=== PATIENT | male | born 1940 | race Caucasian/White ===

== ENCOUNTER 2022-03-02 08:00 | Day surgery (SDC) | payer MEDICARE ==
[~2022-03-02] VITALS: Ht 172.7 cm; Wt 58.0 kg
[2022-03-02] MEDS ORDERED: METO10SY (08:37)
[2022-03-02] MEDS ORDERED: OXYC5 PO (08:38)
[2022-03-02] MEDS ORDERED: METO10 (08:39)
--- NOTE | 2022-03-02 09:17 | NUR ---
03/02/22 0917 Lea Toledo PT. DENIES HAVING A SORE THROAT, DENIES SOB, DENIES A COUGH. PT. JUST VERBALIZES FEELING TIRED.
--- NOTE | 2022-03-02 09:40 | NUR ---
03/02/22 0940 Monika Garrett SCOPE ONLY PASSED UP TILL MD ORTIZ REACHED PROXIMAL TRANSVERSE COLON MASS, BIOPSIES TAKEN AND MASS TATTOOED. THEN SCOPE SLOWLY REMOVED.
== END 2022-03-02 10:14 | disposition home or self-care (01) ==
LOC: ORSCSDS 08:00
PROVIDERS: Surgery
PROC: 0DBL8ZX Excision of Transverse Colon, Via Natural or Artificial Opening Endoscopic, Diagnostic (ICD-10-PCS; principal; 2022-03-02 09:00)
PROC: 3E0H8KZ Introduction of Other Diagnostic Substance into Lower GI, Via Natural or Artificial Opening Endoscopic (ICD-10-PCS; principal; 2022-03-02 09:00)
DX: R93.3 Abnormal findings on diagnostic imaging of other parts of digestive tract (principal); D12.3 Benign neoplasm of transverse colon; K56.699 Other intestinal obstruction unspecified as to partial versus complete obstruction; R63.4 Abnormal weight loss; U07.1 COVID-19; Z87.891 Personal history of nicotine dependence; Z79.899 Other long term (current) drug therapy
CPT/HCPCS: 88305; J2704; J7120

== ENCOUNTER 2022-03-08 11:45 | Emergency (ER) | payer MEDICARE ==
[~2022-03-08] VITALS: Ht 172.7 cm; Wt 72.6 kg
[~2022-03-08 11:45] MED LIST: METO10; METO10SY; OXYC5 PO
[2022-03-08 12:34] LABS: BASOPHILS ABSOLUTE AUTO 0.03 K/mm3 (0.00-0.23); BASOPHILS PERCENT AUTO 1 % (0-2); EOSINOPHILS ABSOLUTE AUTO 0.07 K/mm3 (0.00-0.68); EOSINOPHILS PERCENT AUTO 1 % (0-6); Hematocrit 31.6 % (37.0-53.0); Hemoglobin 10.4 g/dL (13.5-17.5); IMMATURE GRAN ABSOLUTE AUTO 0.01 K/mm3 (0.00-0.10); IMMATURE GRAN PERCENT AUTO 0 % (0-1); LYMPHOCYTES ABSOLUTE AUTO 2.02 K/mm3 (0.84-5.20); LYMPHOCYTES PERCENT AUTO 30 % (21-46); MONOCYTES ABSOLUTE AUTO 0.58 K/mm3 (0.16-1.47); MONOCYTES PERCENT AUTO 9 % (4-13); Mean Corpuscular HGB 28.6 pg (26.0-34.0); Mean Corpuscular HGB Conc 32.9 g/dL (31.5-36.5); Mean Corpuscular Volume 87 fL (80-100); Mean Platelet Volume 9.4 fL (9.1-12.4); NEUTROPHILS ABSOLUTE AUTO 3.93 K/mm3 (1.96-9.15); NEUTROPHILS PERCENT AUTO 59 % (41-73); Platelet Count 252 K/mm3 (150-400); RDW Coefficient Variation 15.3 % (11.7-14.2); RDW Standard Deviation 48.1 fL (35.1-46.3); Red Blood Cell Count 3.64 M/mm3 (4.30-5.90); White Blood Cell Count 6.64 K/mm3 (4.00-11.30)
[2022-03-08 13:10] LABS: Albumin, Blood 2.6 g/dL (3.4-5.0); Albumin/Globulin Ratio 0.6 (0.8-1.8); Bilirubin, Total 0.6 mg/dL (0.1-1.0); Bun/Creatinine Ratio 37.3 (12.0-20.0); Calcium, Blood 8.9 mg/dL (8.5-10.1); Creatinine, Blood 0.72 mg/dL (0.60-1.20); Globulin, Blood 4.5 g/dL (2.2-4.0); Potassium, Blood 3.9 mmol/L (3.5-5.5); Total Protein, Blood 7.1 g/dL (6.4-8.2)
== END 2022-03-08 14:36 | disposition left against medical advice (07) ==
LOC: ER 11:45
PROVIDERS: Physician Assistant
DX: R53.1 Weakness (principal); Z85.038 Personal history of other malignant neoplasm of large intestine; Z79.899 Other long term (current) drug therapy; Z53.21 Procedure and treatment not carried out due to patient leaving prior to being seen by health care provider
CPT/HCPCS: 36415; 80053; 85025; 93005; 93010

== ENCOUNTER 2022-04-11 09:02 | Inpatient (IN) | payer MEDICARE ==
[~2022-04-11] VITALS: Ht 170.2 cm; Wt 64.5 kg
[~2022-04-11 09:02] MED LIST changes: -METO10; +METO10 PO
--- NOTE | 2022-04-11 09:46 | NUR ---
History, Chart, Medications and Allergies reviewed before start of procedure. Patient confirms NPO status and agrees with scheduled surgery. Lungs clear T/O to Auscultation.
[2022-04-12 05:27] LABS: BASOPHILS ABSOLUTE AUTO 0.03 K/mm3 (0.00-0.23); BASOPHILS PERCENT AUTO 0 % (0-2); EOSINOPHILS ABSOLUTE AUTO 0.02 K/mm3 (0.00-0.68); EOSINOPHILS PERCENT AUTO 0 % (0-6); Hematocrit 31.4 % (37.0-53.0); Hemoglobin 10.3 g/dL (13.5-17.5); IMMATURE GRAN ABSOLUTE AUTO 0.05 K/mm3 (0.00-0.10); IMMATURE GRAN PERCENT AUTO 0 % (0-1); LYMPHOCYTES ABSOLUTE AUTO 2.03 K/mm3 (0.84-5.20); LYMPHOCYTES PERCENT AUTO 18 % (21-46); MONOCYTES ABSOLUTE AUTO 0.76 K/mm3 (0.16-1.47); MONOCYTES PERCENT AUTO 7 % (4-13); Mean Corpuscular HGB 29.4 pg (26.0-34.0); Mean Corpuscular HGB Conc 32.8 g/dL (31.5-36.5); Mean Corpuscular Volume 90 fL (80-100); Mean Platelet Volume 9.1 fL (9.1-12.4); NEUTROPHILS PERCENT AUTO 74 % (41-73); Platelet Count 335 K/mm3 (150-400); RDW Coefficient Variation 16.1 % (11.7-14.2); RDW Standard Deviation 53.1 fL (35.1-46.3); White Blood Cell Count 11.19 K/mm3 (4.00-11.30)
--- NOTE | 2022-04-12 05:59 | NUR ---
SHIFT SUMMARY PT POD 0 RIGHT HEMICOLECTOMY. PT HAS HAD PAIN INTERMITTENTLY T/O THE SHIFT. PT MEDICATED FOR PAIN PER EMAR WITH EFFECT. PT HAS HAD SOME CONFUSION OVERNIGHT. TALKING TO HIMSELF, GRABBING AT THE AIR WITH HIS HANDS, AND AT TIMES NONSENSICAL SPEECH. IV DILAUDID MAY HAVE CONTRIBUTED TO PT CONFUSION, IT WAS NOTICABLE AFTER RECEIVING. PT PULLED HIS IV AND ATTEMPTED TO PULL YEUNG. PT SEEMS TO TOLERATE OXYCODONE BETTER THAN DILAUDID, WILL NOTIFY DAYSHIFT RN FOR FOLLOW UP WITH DAYSHIFT ATTENDING REGARDING PAIN MEDICATIONS. PT MORE A/O I WRITE THIS NOTE AND HAS NOT ATTEMPTED TO GET OOB OR PULL CATHETHER OR IV ANYMORE. KNOWS PLACE, EVENT/SITUATION, AND IS MUCH MORE RELAXED. PT LAP SITES CDI, INCISION DRY AND INTACT. PT HAS DENIED N/V. NO BM THIS SHIFT AND HE REPORTS HE IS NOT PASSING GAS YET. VITALS ARE STABLE. YEUNG PATENT AND DRAINING. BED IN LOWEST POSITION, CALL LIGHT WITHIN REACH.
[2022-04-12 06:09] LABS: Bun/Creatinine Ratio 27.6 (12.0-20.0); Calcium, Blood 8.6 mg/dL (8.5-10.1); Creatinine, Blood 0.83 mg/dL (0.60-1.20); Potassium, Blood 4.3 mmol/L (3.5-5.5)
--- NOTE | 2022-04-12 19:34 | NUR ---
SUMMARY: PT IS POD1 EMERSON COLECTOMY. A/O VSS. SURGICAL SITES WNL. PT ABLE TO WORK WITH THERAPY AND REPORTS WEAKNESS, SAT UP IN CHAIR FOR LUNCH. DIET ADVANCED TO REG TODAY, BUT PT REPORTS NO APPETITE. PT HAS DENIED N/V, PASSING GAS. PAIN APPEARS TO BE WELL MANAGED WITH 5 MG OXYCODONE. PT IS VOIDING. NO ACUTE SAFETY CONCERNS, REPORT PASSED TO NOC ALVIN GUARDADO.
--- NOTE | 2022-04-13 07:31 | NUR ---
SUMMARY PT DENIES PASSING FLATUS OR BM. REPORTS VOIDING WITHOUT DIFF THIS AM. PT VERB PO PAIN MEDS INEFFECTIVE-GAVE FENTANYL 50 MCG AM IV WHICH CONT WITH REPORT OF BEING INEFFECTIVE.DAY RN AWARE AND AGREES TO FOLLOW UP REGARDING PAIN.
--- NOTE | 2022-04-13 12:14 | NUR ---
PT DECLINES TO GET OOB, STATES HE IS "BEING PICKED ON AND TOO TIRED" PT EDUCATION DONE AND NEED TO INCREASE ACTIVITY TO INCREASE HIS STRENGTH AND PREVENT POST OP COMPLICATIONS. PT DECLINES OOB AFTER EDUCATION
--- NOTE | 2022-04-13 15:29 | NUR ---
PT REPORTS SLIGHTLY DIZZY WHILE SITTING IN CHAIR, SLIGHTLY DIAPHORETIC, VS CHECKED AND PATIENT ASSISTED BACK TO BED. PT STATES HE IS TIRED AND NEEDS LEFT ALONE TO SLEEP
--- NOTE | 2022-04-13 17:47 | NUR ---
PT REPORTS SLEPT FOR A BIT AND FEELING MUCH BETTER THAN HE DID THIS MORNING. DENIES NAUSEA , TAKING SMALL AMOUNTS OF MECH SOFT DIET. ABD INCISIONS CLEAN, DRY AND INTACT. PT REPORTS PAIN IS CURRENTLY 6 AND THAT IS ACCEPTABLE LEVEL FOR HIM AT THIS TIME. PT DECLINES TO GET OOB FOR DINNER. PT EDUCATED ON NEED TO INCREASE ACTIVITY AND OOB TO IMPROVE STRENGTH
[2022-04-14 04:58] LABS: Hematocrit 34.1 % (37.0-53.0); Hemoglobin 11.3 g/dL (13.5-17.5); Mean Corpuscular HGB 29.3 pg (26.0-34.0); Mean Corpuscular HGB Conc 33.1 g/dL (31.5-36.5); Mean Corpuscular Volume 88 fL (80-100); Mean Platelet Volume 9.1 fL (9.1-12.4); Platelet Count 401 K/mm3 (150-400); RDW Coefficient Variation 15.3 % (11.7-14.2); RDW Standard Deviation 49.8 fL (35.1-46.3); Red Blood Cell Count 3.86 M/mm3 (4.30-5.90); White Blood Cell Count 3.37 K/mm3 (4.00-11.30)
--- NOTE | 2022-04-14 05:12 | NUR ---
PT MINIMALLY RESPONSIVE WITH MORNING VITALS. PT OPENS EYES BUT DID NOT RESPOND VERBALLY. VITALS SHOWED SBP 80'S AND O2 SATS 79%, HR 130'S. PLACED PT ON NON REBREATHER AT 15L, O2 SATS UP TO 94-98%. CBG 213. PT A BIT MORE RESPONSIVE AFTER O2 SATS IMPROVED, NODDING YES/NO AND SAYING [address]SW[address]. NOTIF[address] ORTIZ WHO GAVE ORDER FOR LABS ALONG WITH LR BOLUS AND A D5 DRIP AT 50 ML/HR AFTER BOLUS. EKG SHOWED ST 120'S. AT THIS TIME SBP 120'S AND O2 SATS 99 ON 15L NRB, TITRATED DOWN TO 12L. HR STILL 120'S. HGB 11, STILL WAITING ON CMP. PT RESTING IN BED AND IS MORE RESPONSIVE. WCTM.
[2022-04-14 05:40] LABS: BAND PERCENT MAN 29 % (0-8); BASOPHILS ABSOLUTE MAN 0.03 K/mm3 (0.00-0.23); BASOPHILS PERCENT MAN 1 % (0-2); EOSINOPHILS ABSOLUTE MAN 0.03 K/mm3 (0.00-0.68); EOSINOPHILS PERCENT MAN 1 % (0-6); LYMPHOCYTES PERCENT MAN 15 % (21-46); METAMYELOCYTE ABSOLUTE MAN 0.03 K/mm3 (0.00-0.00); METAMYELOCYTE PERCENT MAN 1 % (0-0); MONOCYTES ABSOLUTE MAN 0.13 K/mm3 (0.16-1.47); MONOCYTES PERCENT MAN 4 % (4-13); NEUTROPHILS ABSOLUTE MAN 2.62 K/mm3 (1.96-9.15); SEG NEUTROPHILS PERCENT MAN 49 % (41-73); TOTAL CELLS COUNTED 100
[2022-04-14 05:48] LABS: Albumin, Blood 2.4 g/dL (3.4-5.0); Albumin/Globulin Ratio 0.5 (0.8-1.8); Bilirubin, Total 0.8 mg/dL (0.1-1.0); Bun/Creatinine Ratio 28.3 (12.0-20.0); Calcium, Blood 9.1 mg/dL (8.5-10.1); Creatinine, Blood 1.73 mg/dL (0.60-1.20); Potassium, Blood 4.6 mmol/L (3.5-5.5); Total Protein, Blood 7.4 g/dL (6.4-8.2)
--- NOTE | 2022-04-14 08:06 | NUR ---
TO RADIOLOGY PER CART
--- NOTE | 2022-04-14 08:36 | NUR ---
returned to room from radiology. pt denies any increase in pain, denies sob
--- NOTE | 2022-04-14 10:12 | NUR ---
Pt is an 81 y.o. man who lives alone with a diagnosis of colon cancer. He underwent hemicolectomy by Dr. Hastings to remove the cancer. He is alert, oriented with moments of confusion. He is non-compliant with therapy, declines to work with PT. Spoke to his nephew Александр yesterday by phone, he reports he lives near pt and checks in on him often. He is planning to come visit today, to see him as well as speak to care mgr about follow up planning, as it remains unclear if pt is able to fully care for himself at this time.
--- NOTE | 2022-04-14 11:09 | NUR ---
TRANSFER NOTE PATIENT TRANSFERRED TO PCU RM 17 FROM SURG 211. PATIENT TO UNIT WITH SBP IN THE 70S. MOST RECENT BLOOD PRESSURE OF 69/53 WITH MAP OF 60. PATIENT RECEIVED BOLUSES IN SURGICAL UNIT. INITIALLY RESPONDED DURING THE HEAT AND FROST INSULATOR WITH SBP INCREASING TO 110S. PATIENT NOW HAS AUDIBLE CRACKLES HEARD THROUGHOUT. NG TUBE PLACED IN SURGICAL UNIT WITH NO CONFIRMATION XRAY DONE AT THIS TIME. CXR TAKEN IN PCU 17 TO VERIFY PLACEMENT. GURLGES HEARD IN THE ABDOMEN UPON AUSCULATATION. MD GONZALEZ WAS CALLED REGARDING PATIENTS UNSTABLE CONDITION WITH ORDERS TO TRANSFER TO ICU WITH MD GOLDSTEIN AND YEUNG CATHETER PLACEMENT. PATIENT TRANSFERRED TO ICU WITH RT, MATTHEW RN, AND AZAM RN. BEDSIDE REPORT GIVEN TO SOULEYMANE ESQUIVEL WITH ALL INFORMATION THIS RN RECEIVED FROM JANINE ESQUIVEL ON THE SURGICAL UNIT. JANINE'S NAME WAS GIVEN TO SOULEYMANE ESQUIVEL INCASE OF ANY QUESTIONS DUE TO HER CARE FOR THE PATIENT FOR MULTIPLE DAYS. PATIENT WAS TRANSFERRED TO ICU BED VIA SLIDE. NO FURTHER QUESTIONS FROM CRISTIANO ESQUIVEL OR SOULEYMANE ESQUIVEL ABOUT PATIENT. CARE OF PATIENT TRANSFERRED TO CRISTIANO/SOULEYMANE ESQUIVEL.
--- NOTE | 2022-04-14 11:22 | NUR ---
1030 pt placed on 14 liter oxygen after ng placement as unable to tolerate nrb mask with ng in place. biox 84-88%. resp therapy notified and placed patient on high flow oxygen at 14 liters. pt denies sob. lung with fine crackles 3/4 of left lung field and 1/2 of right lung field. spoke with dr jennings and orders received. pt transferred via bed to pcu 17. pts nephew notified of pt status and transfer by Mariah Nielson manager export.
[2022-04-14 12:23] LABS: Source, Urine Foley catheter
[2022-04-14 12:28] LABS: Appearance, Urine Hazy (Clear); Bilirubin, Urine Neg (Neg); Blood, Urine 5+ (Neg); Color, Urine Yellow (P-Yellow); Glucose Qualitative, Urine Neg (Neg); Ketones, Urine Neg (Neg); Leukocyte Esterase, Urine 3+ (Neg); Nitrite, Urine Neg (Neg); Protein, Urine 1+ (Neg); Urobilinogen, Urine 1+ (Normal)
--- NOTE | 2022-04-14 12:30 | NUR ---
NEW PT TRANSFER: PT ARRIVED TO THE UNIT AT 1120; PT ARRIVES TO THE UNIT HYPOTENSIVE WITH SBP IN THE 70'S, HR IN THE 100'S, AND MAP 60-63. PT IS ON A BIPAP WITH SETTINGS 14/8 AND FIO2 AT 70%, O2 LEVELS MAINTAINING 96<, AND RR 16-18. DR GONZALEZ CONSULTED DR GOLDSTEIN, AND SHE AT BEDSIDE WHEN PT ARRIVED TO ASSESS HIS CURRENT STATUS. AT THIS TIME, 1 L NS BOLUS INITIATED. THE PT'S NEUROLOGIC FUNCTIONING PRESERVED UPON MY ASSESSMENT. THE PT IS ABLE TO FOLLOW COMMANDS BY SQEEZING MY HANDS AND MOVING HIS TOES, TRACKING WITH HIS EYES APPROPRIATELY, AND ABLE TO NOD YES/NO TO SIMPLE QUESTIONS. PT HAS NO COMPLAINTS OF PAIN AT THIS TIME. THE PT HAS A MIDLINE ABD INCISION THAT IS CLEAN AND HAS NO DRAINAGE PRESENT. THE ABD LOOKS MILDLY DISTENDED, BUT THE PT HAS NO C/O OF PAIN WHEN PALPATED. THE PT HAS HYPOACTIVE BS IN ALL FOUR QUADRANTS. THE PT HAS A NGT PRESENT AND HOOKED UP TO LOW-INTERMEDIATE SUCTIONING. THE NGT ADVANCED BY 5 CM BY THIS RN PER DR GOLDSTEIN; PLACEMENT RECONFIRMED WITH ANOTHER CXR. PT HAD AN INDWELLING CATHETER INSERTED TODAY IN PCU RIGHT BEFORE TRANSFER TO THIS UNIT. URINE SPECIEN COLLECTED IN THE ICU AND SENT TO THE LAB. THE CATHETER IS PATENT AND DRAINING TO GRAVITY. THE PT HAD A SMALL BM WHEN HE ARRIVED TO THE UNIT. DR GOLDSTEIN PUT ORDERS IN FOR LEVOPHED AND IT WAS STARTED AT 1314 WITH A RATE OF 2 MCG/MIN. THE PT IS CURRENTLY RESTING IN BED. DR. ORTIZ AT BEDSIDE AT 1400 TO ASSESS PT AND OBTAIN UPDATE ON STATUS. WILL CONTINUE TO MONITOR THROUGHOUT THE SHIFT.
[2022-04-14 12:35] LABS: Hematocrit 26.9 % (37.0-53.0)
[2022-04-14 14:25] LABS: Red Blood Cells, Urine 25-50 /hpf (0-2)
[2022-04-14 14:26] LABS: Amorphous Mod (0-Heavy); Bacteria Many /hpf; Renal Epithelial Rare /hpf (0-Rare); Squamous Epithelial Cells Rare /hpf (Few)
--- NOTE | 2022-04-14 18:53 | NUR ---
SHIFT SUMMARY: PT ALERT AND ORIENTED X 2 AND REMAINS ABLE TO FOLLOW COMMANDS AND ANSWER SIMPLE QUESTIONS VERBALLY. THE PT CURRENTLY HAS LEVOPHED RUNNING AT 5 MCG/MIN WITH HR IN THE 100'S, SBP 110'S, AND MAP 65<. THE PT IS CURRENTLY ON 1 L O2 AND O2 LEVELS HAVE BEEN MAINTAINING 96< AND RR 14-16. THE PT HAS CLEAR LUNG SOUNDS IN UPPER LOBES BILATERALLY WITH COARSE SOUNDS LOWER LOBES BILATERALLY. THE PT HAS AN NGT IN PLACE THAT IS HOOKED UP TO LOW-INTERMEDIATE SUCTIONING. THE PT HAS AN INDWELLING CATHETER TAHT IS PATENT AND DRAINING TO GRAVITY; ANNELISE, DARK URINE. THE PT HAD FAMILY MEMBERS VISITING THIS AFTERNOON AND THEY WERE UPDATED ON THE PT'S STATUS AND ALL QUESTIONS WERE ANSWERED AT THIS TIME. REPORT GIVEN TO FIDEL ESQUIVEL AND ZOHAIB ESQUIVEL.
--- NOTE | 2022-04-14 19:00 | NUR ---
ASSUMED CARE PT SITTING IN BED. A/O TO SELF ONLY. LEVOPHED GTT 5MCG/MIN. LR INFUSING 100ML/HR. DENIES PAIN IN ABD. MIDLINE INCISION C/D/I. NGT TO LOW INT SUCTION. CALL LIGHT IN REACH, BED ALARM ON.
--- NOTE | 2022-04-14 20:30 | NUR ---
PULLING ON TUBES AND LINES PT ATTEMPTED TO CLIMB OOB. PULLED OUT L FORARM PIV AND NGT. REDIRECTED PT TO LAY DOWN. SWB RESTRAINTS APPLIED TO PROTECT LINE AND TUBES. NEW NGT PLACED TO LEFT NARE. PT TOLERATED WELL. PLACEMENT VERIFIED BY ASPIRATION OF GASTRIC CONTENTS. BED ALARM ON, CALL LIGHT IN REACH.
[2022-04-15 04:18] LABS: Hematocrit 26.6 % (37.0-53.0); Hemoglobin 8.8 g/dL (13.5-17.5); Mean Corpuscular HGB 28.9 pg (26.0-34.0); Mean Corpuscular HGB Conc 33.1 g/dL (31.5-36.5); Mean Corpuscular Volume 88 fL (80-100); Mean Platelet Volume 9.1 fL (9.1-12.4); Platelet Count 327 K/mm3 (150-400); RDW Coefficient Variation 15.5 % (11.7-14.2); RDW Standard Deviation 50.3 fL (35.1-46.3); Red Blood Cell Count 3.04 M/mm3 (4.30-5.90); White Blood Cell Count 8.93 K/mm3 (4.00-11.30)
[2022-04-15 04:36] LABS: Albumin/Globulin Ratio 0.4 (0.8-1.8); Bilirubin, Total 0.6 mg/dL (0.1-1.0); Bun/Creatinine Ratio 46.8 (12.0-20.0); Calcium, Blood 8.2 mg/dL (8.5-10.1); Creatinine, Blood 1.11 mg/dL (0.60-1.20); Globulin, Blood 4.5 g/dL (2.2-4.0); Potassium, Blood 4.1 mmol/L (3.5-5.5); Total Protein, Blood 6.5 g/dL (6.4-8.2)
[2022-04-15 05:05] LABS: BAND PERCENT MAN 49 % (0-8); BASOPHILS PERCENT MAN 0 % (0-2); EOSINOPHILS ABSOLUTE MAN 0.08 K/mm3 (0.00-0.68); EOSINOPHILS PERCENT MAN 1 % (0-6); LYMPHOCYTES ABSOLUTE MAN 1.33 K/mm3 (0.84-5.20); LYMPHOCYTES PERCENT MAN 15 % (21-46); METAMYELOCYTE ABSOLUTE MAN 0.08 K/mm3 (0.00-0.00); METAMYELOCYTE PERCENT MAN 1 % (0-0); MONOCYTES ABSOLUTE MAN 0.17 K/mm3 (0.16-1.47); MONOCYTES PERCENT MAN 2 % (4-13); NEUTROPHILS ABSOLUTE MAN 7.23 K/mm3 (1.96-9.15); SEG NEUTROPHILS PERCENT MAN 32 % (41-73); TOTAL CELLS COUNTED 100
--- NOTE | 2022-04-15 05:53 | NUR ---
SHIFT SUMMARY PT IS A/O TO SELF ONLY. CALM AND COOPERATIVE AT TIMES. AGITATED AND IRRITABLE AT OTHERS. SWB RESTRAINTS IN PLACE D/T LINE/NGT PROTECTION. LEVOPHED TITRATED OFF AT 0216. VSS W/ MAP GREATER THAN 65. NS INFUSING AT 100ML/HR. MEDICATED X1 FOR PAIN. MIDLINE INCISION C/D/I. ON RA W/ SATS GREATER THEN 90%. LUNG SOUNDS CLEAR W/ CRACKLES IN BASES. YEUNG PATENT AND DRAINING TO GRAVITY. SCDs TO BLE.
--- NOTE | 2022-04-15 12:34 | NUR ---
REASSESSMENT PT'S MENTATION HAS IMPROVED THROUGHOUT THE MORNING, BUT HE IS STILL CONFUSED. WHEN REORIENTED HE REMEMBERS FOR THE TIME THAT THIS NURSE IS IN THE ROOM, BUT FORGETS LATER WHEN THIS NURSE RETURNS AND NEEDS REORIENTATION AGAIN. HE HAS STILL BEEN REACHING FOR THE NG TUBE WHEN RESTRAINTS ARE OFF. DR. ORTIZ CAME BY AND GAVE ORDERS TO CONTINUE THE NG IT HAS HAD ABOUT 500ML OF [place] BROWN OUTPUT. WHEN MOVING HE WINCES AND SAYS HE HAS PAIN, BUT REFUSES PAIN MEDICATION. HIS LUNGS ARE CLEAR, RA WITH SPO2 96%. ST IN THE LOW 100S SINCE HE GOT UP TO THE CHAIR, BP STABLE. BOWEL TONES ACTIVE. MIDLINE INCISION C/D/I. YEUNG WITH DARK YELLOW URINE. PT WORKED WITH PHYSICAL THERAPY THIS MORNING AND NOW IS SITTING UP IN THE CHAIR. CONTINUING TO MONITOR.
--- NOTE | 2022-04-15 14:54 | NUR ---
TRANSFER PT TRANSFERRED TO RM 226 VIA WC WITH AIDE. REPORT GIVEN TO ALVIN DICKSON. ALL BELONGINGS MOVED WITH PT.
--- NOTE | 2022-04-15 15:11 | NUR ---
TRANSFER PT ARRIVED FROM ICU AT 1500. PT ALERT AND ORIENTED CAN TELL WHERE HE IS AND WHY. DENIES PAIN REPORTS SOME DISCOMFORT MIDLINE. INCISIONS CDI WITH WOUND GLUE. NGT CONNECTED TO LOW INTERMITTENT SUCTION BROWN DRAINAGE IN TUBE UPON CONNECTING. YEUNG PATENT AND DRAINING. PT ABLE TO TRANSFER SELF WITH 1 ASSIST TO BED FROM WHEELCHAIR. IV FLUIDS INFUSING PER ORDERS. CALL SANAT PROVIDED AND PT EDUCATED ON USE.
--- NOTE | 2022-04-16 01:30 | NUR ---
ASSUMING CARE OF PT.NOTIFIED TELE OFF. ENTERED RM TO FIND PT IN BED NUDE WITH GOWN OFF,BLANKETS ATTENDS,MEPILEX ALL ON FLOOR COVERED IN STOOL-IN ADDITION TO NOTING PT PULLED NG OUT AND POWER GLIDE OUT AND THEY ARE ALSO RESTING ON FLOOR.POWER GLIDE SITE WITHOUT BLEED.CATH APPEARS INTACT.REPORTED THAT PT HAS BEEN INTERMITTENTLY DISORIENTED. AT THIS TIME PT IS ORIENTED TO SURROUNDINGS AND SELF.BED BATH GIVEN,COMPLETE LINEN CHANGE,ROOM CLEANED,BED ALARM ON.
[2022-04-16 04:21] LABS: Hematocrit 25.7 % (37.0-53.0); Hemoglobin 8.5 g/dL (13.5-17.5); Mean Corpuscular HGB 28.7 pg (26.0-34.0); Mean Corpuscular HGB Conc 33.1 g/dL (31.5-36.5); Mean Corpuscular Volume 87 fL (80-100); Mean Platelet Volume 8.8 fL (9.1-12.4); Platelet Count 307 K/mm3 (150-400); RDW Coefficient Variation 15.4 % (11.7-14.2); RDW Standard Deviation 49.3 fL (35.1-46.3); Red Blood Cell Count 2.96 M/mm3 (4.30-5.90); White Blood Cell Count 5.18 K/mm3 (4.00-11.30)
[2022-04-16 04:41] LABS: Bun/Creatinine Ratio 57.4 (12.0-20.0); Calcium, Blood 8.2 mg/dL (8.5-10.1); Creatinine, Blood 0.77 mg/dL (0.60-1.20); Potassium, Blood 3.9 mmol/L (3.5-5.5)
[2022-04-16 05:41] LABS: BAND PERCENT MAN 20 % (0-8); BASOPHILS ABSOLUTE MAN 0.05 K/mm3 (0.00-0.23); BASOPHILS PERCENT MAN 1 % (0-2); EOSINOPHILS PERCENT MAN 2 % (0-6); LYMPHOCYTES ABSOLUTE MAN 0.98 K/mm3 (0.84-5.20); LYMPHOCYTES PERCENT MAN 19 % (21-46); MONOCYTES PERCENT MAN 0 % (4-13); NEUTROPHILS ABSOLUTE MAN 4.04 K/mm3 (1.96-9.15); SEG NEUTROPHILS PERCENT MAN 58 % (41-73); TOTAL CELLS COUNTED 100
--- NOTE | 2022-04-16 07:45 | NUR ---
SUMMARY PT RESTING IN BED. PERIPHERAL IV OBTAINED.LEFT NG OUT. DR ORDERED TO D/Misael YEUNG AND START CLEAR LIQ.
--- NOTE | 2022-04-16 19:24 | NUR ---
shift summary PT HAS BEEN ORIENTED AND COOPERATIVE T/O SHIFT. MIDLINE INCISIONS WITH WOUND GLUE CDI. BOWEL MOVEMENT TODAY. PT HAS BEEN USING CALL LIGHT APPROPRIATLY. DENIES PAIN DURING SHIFT. 1 ASSIST WITH AMBULATION TO RESTROOM, MINIMAL WEAKNESS WITH AMBULATION. TOLERATING CLEAR LIQUIDS TODAY. NO NAUSEA. VERY HAPPY TO HAVE NG TUBE OUT.
--- NOTE | 2022-04-17 05:57 | NUR ---
POD 6 S/P HEMICOLECTOMY. PT VSS T/O NIGHT. INCISION CDI. PAIN MGD W/TYLENOL. PT MONAE CL PO, NO N/V, HAVING LIQ BROWN BM. PT INCONTINENT OF URINE; ATTENDS CHANGED PRN. PT A/O AT BEGINNING OF SHIFT, BECAME INCREASINGLY CONFUSED T/O NIGHT; PT EASILY REORIENTED. BED ALARM ON FOR SAFETY.
--- NOTE | 2022-04-17 10:21 | NUR ---
TRANSFER SUMMARY PT NOT FOLLOWING DIRECTIONS, TRIES TO GET UP ON HIS OWN/IMPULSIVE, BEING TRANSFERRED TO SCU FOR SAFETY AND CLOSER MONITORING. REPORT PROVIDED TO 345.
--- NOTE | 2022-04-17 10:29 | NUR ---
PT WAS TRANSFERRED TO THE FLOOR AT 1000. HE IS CALM AND COOPERATIVE SITTING IN BED AND WATCHING TV. HE IS ON ROOM AIR. HE STATES SOME LIGHT PAIN IN THE MIDDLE OF HIS STOMACH WHERE HIS INCSION IS, BUT DOES NOT NEED PAIN MEDICATION RN.
--- NOTE | 2022-04-17 18:23 | NUR ---
SHIFT SUMMARY PT IS SITTING IN BED, BUT HAS BEGUN . DURING DDAY SHIFT HE IS CALM, COOPERATIVE, AND STAY IN BED OR THE CHAIR. HE IS IN SOME PAIN WITH HIS INCISION, BUT WANTS TO REFUSE PAIN MEDICATION HOWEVER THIS RN HAS ENCOURAGED PAIN MANAGEMENT AND EDUCATED ON WHY IT IS IMPORTANT TO THE PT. HE WAS MEDICATED WITH A PRN TO PREVENT HIM FROM GETTING UP AND FALLING AND WAS PLACED ON CAMERA. BED IS IN THE LOWEST POSITION AND THE CALL LIGHT IS IN REACH.
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
[2022-04-18 08:53] LABS: Hematocrit 28.6 % (37.0-53.0); Hemoglobin 9.3 g/dL (13.5-17.5); Mean Corpuscular HGB 28.9 pg (26.0-34.0); Mean Corpuscular HGB Conc 32.5 g/dL (31.5-36.5); Mean Corpuscular Volume 89 fL (80-100); Mean Platelet Volume 8.6 fL (9.1-12.4); Platelet Count 345 K/mm3 (150-400); RDW Coefficient Variation 15.4 % (11.7-14.2); RDW Standard Deviation 50.2 fL (35.1-46.3); Red Blood Cell Count 3.22 M/mm3 (4.30-5.90); White Blood Cell Count 6.09 K/mm3 (4.00-11.30)
[2022-04-18 09:15] LABS: Bun/Creatinine Ratio 28.3 (12.0-20.0); Calcium, Blood 8.1 mg/dL (8.5-10.1); Creatinine, Blood 0.74 mg/dL (0.60-1.20); Potassium, Blood 3.4 mmol/L (3.5-5.5)
[2022-04-18 09:20] LABS: BAND PERCENT MAN 3 % (0-8); BASOPHILS ABSOLUTE MAN 0.06 K/mm3 (0.00-0.23); BASOPHILS PERCENT MAN 1 % (0-2); EOSINOPHILS PERCENT MAN 0 % (0-6); LYMPHOCYTES % ATYPICAL MANUAL 1 % (0-0); LYMPHOCYTES ABSOLUTE MAN 1.46 K/mm3 (0.84-5.20); LYMPHOCYTES PERCENT MAN 23 % (21-46); MONOCYTES ABSOLUTE MAN 0.24 K/mm3 (0.16-1.47); MONOCYTES PERCENT MAN 4 % (4-13); NEUTROPHILS ABSOLUTE MAN 4.32 K/mm3 (1.96-9.15); SEG NEUTROPHILS PERCENT MAN 68 % (41-73); TOTAL CELLS COUNTED 100
--- NOTE | 2022-04-18 18:44 | NUR ---
SHIFT SUMMARY PT REFUSES TO GET UP INTO CHAIR T/O SHIFT, STATING HE NEEDS HIS REST AND HIS ABD IS HEALING. THIS RN EDUCATED THE PT THAT IT IS IMPORTANT TO GET UP INTO THE CHAIR OCCATIONALLY TO HELP PREVENT DECONDITIONING. PT STILL REFUSES THIS AFTERWARDS. PT REFUSED SHOWER AND NAIL CARE TODAY, STATING HE NEEDS TO REST. PT HAS HAD 2 LIQUID BMS THIS SHIFT. PT STATES HE URINATED ONCE IN THE TOILET WHEN HE HAD A BM, BUT THIS RN DID NOT SEE IT. BLADDER SCAN VOLUME REFLECTS THAT PT URINATED. NO OTHER ACUTE CHANGES IN ASSESSMENT AT THIS TIME. VS REVIEWED. PT RESTING IN BED. REFUSED DINNER. POOR APPETITE TODAY.
--- NOTE | 2022-04-19 05:26 | NUR ---
SHIFT SUMMARY PATIENT ALERT AND ORIENTED X3. HAD NO COMPLAINTS OF PAIN OR SHORTNESS OF BREATH. NO ACUTE ISSUES NOTED OVERNIGHT. CALL LIGHT WITHIN REACH. REPORT GIVEN TO ONCOMING RN.
--- NOTE | 2022-04-19 09:48 | NUR ---
RN NOTE MR VÁZQUEZ WAS DIFFICULT TO AROUSE WITH LOUD VOICE THIS MORNING. HE WILL OPEN HIS EYES TO QUIET VOICE NOW AND CAN TELL ME HIS NAME, LOCATION AND DATE, BUT HE SPEAKS IN ONE WORD SENTENCES. ENCOURAGED TO ENGAGE. BED LOW, CALL LIGHT IN REACH, BED ALARM ON.
[2022-04-19 14:03] LABS: Bun/Creatinine Ratio 29.9 (12.0-20.0); Calcium, Blood 7.7 mg/dL (8.5-10.1); Creatinine, Blood 0.74 mg/dL (0.60-1.20); Potassium, Blood 3.2 mmol/L (3.5-5.5)
[2022-04-19 17:10] LABS: Influenza A, PCR NEGATIVE (NEGATIVE); Influenza B, PCR NEGATIVE (NEGATIVE); Resp Syncytial Virus, PCR NEGATIVE (NEGATIVE); SARS-Cov-2 (COVID-19) PCR, MMC NEGATIVE (NEGATIVE)
--- NOTE | 2022-04-19 17:47 | NUR ---
SHIFT SUMMARY MR VÁZQUEZ HAS SLEPT A LOT TODAY, BUT HE DID WORK WITH PT AND GO INTO THE SHOWER WHITH HIM EARLIER. HE HAS BEEN AROUSABLE WITH NORMAL TONE VOICE AND GIVEN SHORT VERBAL RESPONSES. MINIMAL ABDOMINAL DISCOMFORT. LOOSE STOOLS. BLADDER SCAN 503ML EARLIER BEFORE PT VOIDED/BM (UNMEASURABLE). HE HAS NOT WANTED TO EAT MEALS TODAY BUT HAS BEEN TAKING THE ENSURE. HE HAS BEEN CALM, SOMETIMES DISAGREEING WITH ASPECTS OF CARE LIKE EATING OR SITTING IN CHAIR, BUT CALM ABOUT IT. BED LOW, CALL LIGHT IN REACH, BED ALARM ON.
--- NOTE | 2022-04-19 22:24 | NUR ---
PT WOKE FROM [facility]. PT STS HE'S FEELING PRETTY GOOD, BUT WOULD LIKE TO GO BACK TO SLEEP. TOOK NIGHT MEDS, HAD A SNACK, AND IS GOING BACK TO BED.
--- NOTE | 2022-04-20 04:08 | NUR ---
SHIFT SUMMARY NO ACUTE CHANGES TO PT STATUS. PT SLEEPING MUCH OF THE NIGHT. PT TOOK HIS NIGHTLY MEDICATIONS. CALL LIGHT IN REACH.
[2022-04-20 05:46] LABS: Magnesium, Blood 1.7 mg/dL (1.6-2.4)
[2022-04-20 05:47] LABS: Albumin, Blood 1.9 g/dL (3.4-5.0); Anion Gap 4 mmol/L (6-16); Blood Urea Nitrogen 18 mg/dL (8-24); Bun/Creatinine Ratio 28.7 (12.0-20.0); CO2, Blood 25 mmol/L (21-32); Calcium, Blood 7.9 mg/dL (8.5-10.1); Chloride, Blood 111 mmol/L (98-108); Creatinine, Blood 0.63 mg/dL (0.60-1.20); Glomerular Filtration Rate 96 (60-); Glucose, Blood 171 mg/dL (70-99); Phosphorus, Blood 2.7 mg/dL (2.5-4.9); Potassium, Blood 3.5 mmol/L (3.5-5.5); Sodium, Blood 140 mmol/L (136-145)
--- NOTE | 2022-04-20 17:08 | NUR ---
SHIFT SUMMARY PT REFUSED ALL CARE THIS MORNING AND WAS DISAGREABLE TO THERAPY, EATING, AND MEDICATIONS, BUT LATER IN THE MORNING COULD BE CONVINCED. HE DID NATHALY UP WORKING WITH OT. HE IS HAS HAD ONE DOSE OF PAIN MEDICATION THIS MORNING, BUT DENIED FURTHER NEED HE WAS SAYING HE FEELS FUNNY, BUT THINKS THAT THE PAIN MEDICATION WAS CAUSING HIM TO "HAVE SIDE CRAMPS." PT HAS BEEN INCONT AND IS REFUSING TO GET OUT OF BED DESPITE EDUCATION ON WHY MOVING IS IMPORTANT FOR HEALING. BED IS IN LOWEST POSITION
--- NOTE | 2022-04-20 23:19 | NUR ---
1939 PT LYING IN BED, REPORTS ABD PAIN, GAVE TYLENOL, WILL EVAL FOR EFFECT. ABD INCISION WITH SCABBING AND SMALL AMOUNT OF BRUISING. NO DRAINAGE. TELE NSR. NO OTHER APPARENT SIGNS OF DISTRESS. CALL LIGHT IS IN REACH.
--- NOTE | 2022-04-20 23:41 | NUR ---
CHECKED PT'S ATTENDS, DRY AT THIS TIME. ASSISTED SHARPLES MACHINE OPERATOR IN FLOATING PT WITH A PILLOW UNDER EACH SIDE. PT DENIES NEED FOR ANYTHING ELSE AT THIS TIME. NO APPARENT SIGNS OF DISTRESS. CALL LIGHT IS IN REACH. TAB ALARM IS ON.
--- NOTE | 2022-04-21 02:39 | NUR ---
ASSISTED DRUM STENCILER IN TURNING AND REPOSITIONING PT. ATTENDS ARE DRY AT THIS TIME. PT DENIES NEED FOR ANYTHING AT THIS TIME. NO APPARENT SIGNS OF DISTRESS. CALL LIGHT IS IN REACH. TAB ALARM IS ON.
--- NOTE | 2022-04-21 04:25 | NUR ---
TURNED AND REPOSITIONED PT. PT'S ATTENDS IS DRY AT THIS TIME. NO APPARENT SIGNS OF DISTRESS. CALL LIGHT IS IN REACH. TAB ALARM IS ON.
--- NOTE | 2022-04-21 04:26 | NUR ---
PT IS AAO X 3, HAS BEEN PLEASANT AND COOPERATIVE FOR THIS SHIFT.REPORTED ABD PAIN, GOT TYLENOL. PT IS RELUCTANT TO TAKE OXICODONE. TELE NSR. ABD INCISION HAS SOME SCABBING AND A LITTLE BRUISING, NO DRAINAGE.
[2022-04-21 05:44] LABS: Albumin, Blood 1.8 g/dL (3.4-5.0); Anion Gap 6 mmol/L (6-16); Blood Urea Nitrogen 20 mg/dL (8-24); Bun/Creatinine Ratio 28.3 (12.0-20.0); CO2, Blood 25 mmol/L (21-32); Calcium, Blood 7.9 mg/dL (8.5-10.1); Chloride, Blood 109 mmol/L (98-108); Creatinine, Blood 0.71 mg/dL (0.60-1.20); Glomerular Filtration Rate 93 (60-); Glucose, Blood 135 mg/dL (70-99); Potassium, Blood 3.8 mmol/L (3.5-5.5); Sodium, Blood 140 mmol/L (136-145)
--- NOTE | 2022-04-21 06:36 | NUR ---
PT LYING IN BED, EYES CLOSED, APPEARS TO BE RESTING. BREATHING IS EVEN, UNLABORED. NO APPARENT SIGNS OF DISTRESS. CALL LIGHT IS IN REACH. TAB ALARM IS ON. NO OTHER CHANGES THIS SHIFT.
--- NOTE | 2022-04-21 09:35 | NUR ---
ALERT AND OREINTED, MAKES NEEDS KNOWN, MEDICATED FOR PAIN, WORKING WITH PT NOW, CALL LIGHT WITH IN REACH, WCTM
--- NOTE | 2022-04-21 09:38 | NUR ---
PATIENT AMBULATED IN HALLS WITH PT, STEADY GAIT WITH FWW AND WITH JUST STAND BY ASSIST
--- NOTE | 2022-04-21 17:34 | NUR ---
ALERT AND ORIENTED TODAY, MAKES NEEDS KNOWN, EASILY WAKES AND BACK TO SLEEP, AMBULATED IN THE HALLS WITH PT AND OT. VSS, NO ACUTE CHANGES, CALL LIGHT WITH IN REACH, WCTM
--- NOTE | 2022-04-22 05:53 | NUR ---
SHIFT SUMMARY PT AOX4, SLEPT THROUGH MOST OF THE NIGHT. PT WAS CONTINENT, UP TO THE BATHROOM WITH STANDBY ASSIST AND NEEDED HELP CLEANING. PT HAD A LOOSE, WATERY STOOL. PT WOULD ANGER EASILY DURING INTERACTIONS BUT WAS COOPERATIVE WITH CARE. PT'S INCISION REMAINS PATENT, NO DRAINAGE OR INCREASING SWELLING/REDNESS.
--- NOTE | 2022-04-22 19:30 | NUR ---
RECEIVED BEDSIDE REPORT FROM DAY SHIFT RN. PT SMILING AT STAFF. ON RA. NO NEEDS AT THIS TIME. CALL LT IN REACH.
--- NOTE | 2022-04-22 21:49 | NUR ---
PT RESTING QUIETLY. CALL LT IN REACH.
--- NOTE | 2022-04-23 00:37 | NUR ---
PT RESTING QUIETLY. NO NEEDS AT THIS TIME. CALL LT IN REACH.
--- NOTE | 2022-04-23 00:43 | NUR ---
PT LYING ON RIGHT SIDE. ABLE TO REPOSITIONED SELF IN BED FOR COMFORT. CALL LT IN REACH.
--- NOTE | 2022-04-23 01:58 | NUR ---
PT RESTING QUIETLY. EYES CLOSED. CALL LT IN REACH.
--- NOTE | 2022-04-23 03:52 | NUR ---
SHIFT SUMMARY: ALERT. ON RA. SR AT 91 ON TELE. NO COMPLAINTS OF PAIN, NAUSEA OR SOB. NO DIARRHEA DURING SHIFT. NO S/SX OF INFECTION TO INCISION ON ABDOMEN. NO ACUTE CHANGES. WILL CONTINUE TO PROVIDE CARE UNTIL SHIFT REPORT.
--- NOTE | 2022-04-23 04:05 | NUR ---
ASSISTED PT USING THE FWW TO THE BATHROOM AND BACK TO BED. PT DID WELL USING FWW. HAD A SM BM. NO DIARRHEA.
--- NOTE | 2022-04-23 05:21 | NUR ---
ASSISTED PT TO THE BR AND BACK TO BED USING FWW WITHOUT DIFFICULTY.
--- NOTE | 2022-04-23 09:49 | NUR ---
DR GONZALEZ ROUNDED, TELEMETRY DISCONTINUED AND NO IV ACCESS OKAYED, NO ACUTE CHANGES, PATIENT PLEASANT THIS AM
--- NOTE | 2022-04-23 17:33 | NUR ---
MAKES NEEDS KNOWN, PLEASANT TO CARE, ALERT AND ORIENTED BUT FORGETFUL AT TIMES, POOR APPETITE TODAY, DIARRHEA INCREASED THROUGHOUT THE DAY NOW WATER CONSISTENCEY, MEDICATED WITH 4MG IMMODIUM. LS CLEAR, ABD SOFT SUTURE OPEN TO AIR, CDI, NO S/S OF INFECTION, ACTIVE BT. DENIES CP AND NAUSEA. RADIAL AND PEDAL PULSES STRONG. ONE PERSON STAND BY ASSIST TO BATHROOM. TELE DISCONTINUED TODAY, NO IV ACCESS OKAYED, CALL LIGHT WITH IN REACH, WCTM
--- NOTE | 2022-04-23 19:26 | NUR ---
RECEIVED REPORT FROM DAY SHIFT RN. PT ASSISTED TO BATHROOM BY ROLAND. ON RA. NO TELE. NO COMPLAINTS OR NEEDS. BED ALARM ON. CALL LT IN REACH. WILL PROVIDE CARE T/O SHIFT.
--- NOTE | 2022-04-23 22:05 | NUR ---
PT SET OFF BED ALARM NEEDING TO USE THE BATHROOM. FWW USED BY PT. AMBULATING WELL. BACK IN BED AND BED ALARM BACK ON. CALL LT IN REACH.
--- NOTE | 2022-04-23 23:40 | NUR ---
PT RESTING QUIETLY. BED ALARM ON. CALL LT IN REACH.
--- NOTE | 2022-04-24 00:06 | NUR ---
PT RESTING QUIETLY. ABLE TO POSITION SELF IN BED. BED ALARM ON. CALL LT IN REACH.
--- NOTE | 2022-04-24 02:31 | NUR ---
PT RESTING COMFORTABLY. BED ALARMED. CALL LT IN REACH.
--- NOTE | 2022-04-24 03:51 | NUR ---
PT RESTING QUIETLY. CALL LT IN REACH. BED ALARMED.
--- NOTE | 2022-04-24 04:05 | NUR ---
SHIFT SUMMARY: NO ACUTE CHANGES. PT RESTED WELL T/O SHIFT. ON RA. NO COMPLAINTS OF PAIN OR NAUSEA. AMBULATING WELL USING FWW WITH A SBA. TWO LOOSE STOOLS DURING SHIFT. WILL CONTINUE TO PROVIDE CARE UNTIL SHIFT REPORT.
--- NOTE | 2022-04-24 06:12 | NUR ---
PT CONTINUES REST WELL. BED ALARM ON. CALL LT IN REACH.
--- NOTE | 2022-04-24 16:59 | NUR ---
PATIENT A/OX3, BUT FORGETFUL. PLEASANT AND COOPERATIVE WITH CARE THIS SHIFT. IMMODIUM ORDERED TO TREAT DIARRHEA AND IT SEEMS TO HAVE SLOWED DOWN. CONTINUES TO HAVE A POOR APPEITE. VSS, ON RA. REPORTS ABOMINAL PAIN, ROXICODONE GIVEN X1 TODAY TO TREAT. FAMILY AT BEDSIDE TODAY AND HAD SOME QUESTIONS ABOUT CAREGIVER ASSISTANCE ONCE PATIENT IS HOME. QUESTIONS PASSED ALONG TO MARLA, WORK[employer]' COMPENSATION MEDIATOR. PLAN IS TO D/C TO A SNF.
--- NOTE | 2022-04-25 04:14 | NUR ---
SHIFT SUMMARY AOX3, FORGETFUL. SLEPT WELL T/O NIGHT. NO ACUTE CHANGES THIS SHIFT. VSS. DENIES PAIN, N/V, DYSPNEA. STILL HAVING LIQUID STOOLS. HAD 2 LIQUID ANDREA COLOR BM THIS SHIFT, DENIED THE NEED FOR IMMODIUM & WOULDNT TAKE. OTHERWISE HAS BEEN PLEASENT & COOPERATIVE c CARE. MID ABD SURGICAL INSICION C/D/I, NO DRAINAGE OR SWELLING. CALL LIGHT IN REACH & PT ABLE TO MAKE NEEDS KNOWN. WILL MONITOR.
--- NOTE | 2022-04-25 18:10 | NUR ---
SHIFT SUMMARY: PATIENT A&OX3, FORGETFUL AT TIMES AND SLOW TO RESPOND. NO ACUTE CHANGES THIS SHIFT. PATIENT UP TO BATHROOM WITH SBA. PLEASANT AND COOPERATIVE WITH CARE. PATIENT HAD 1 LARGE SOFT LIGHT [place]Z COLORED STOOL THIS SHIFT. HAS BEEN RESTING IN BED T/O SHIFT. MID ABDOMINAL SURGICAL INCISION C/D/I, NO DRAINAGE, REDNESS OR SWELLING NOTED. USED CALL LIGHT APPROPRIATELY T/O SHIFT. PLAN TO D/C PATIENT TO [facility] AWAITING FOR INSURANCE APPROVAL. BED IN LOWEST POSITION, LOCKED AND CALL LIGHT WITHIN PATIENT REACH. WILL GIVE REPORT TO ONCOMING WINDY RN.
[2022-04-26 06:59] LABS: Hematocrit 25.7 % (37.0-53.0); Hemoglobin 8.5 g/dL (13.5-17.5); Mean Corpuscular HGB 29.2 pg (26.0-34.0); Mean Corpuscular HGB Conc 33.1 g/dL (31.5-36.5); Mean Corpuscular Volume 88 fL (80-100); Mean Platelet Volume 8.8 fL (9.1-12.4); Platelet Count 395 K/mm3 (150-400); RDW Coefficient Variation 16.1 % (11.7-14.2); RDW Standard Deviation 51.9 fL (35.1-46.3); Red Blood Cell Count 2.91 M/mm3 (4.30-5.90); White Blood Cell Count 7.22 K/mm3 (4.00-11.30)
[2022-04-26 07:21] LABS: Bun/Creatinine Ratio 28.7 (12.0-20.0); Creatinine, Blood 0.63 mg/dL (0.60-1.20); Potassium, Blood 3.5 mmol/L (3.5-5.5)
--- NOTE | 2022-04-26 07:35 | NUR ---
SHIFT SUMMARY: NO ACUTE CHANGES. PATIENT ATE 100% ON SNACK. VSS, NO REPORTS OF PAIN.
--- NOTE | 2022-04-26 16:03 | NUR ---
SHIFT SUMMARY PATIENT IS ALERT AND ORIENTED WITH OCCASIONAL CONFUSION. PATIENT HAS HAD NO ACUTE EVENTS THIS SHIFT. VITAL SIGNS REVIEWED. PATIENT IS A ONE PERSON ASSIST TO BATHROOM. PATIENT HAS ONE LOOSE STOOL THIS SHIFT. PATIENT HAS NOT COMPLAINED OF PAIN, SOB, NAUSEA OR VOMITTING THIS SHIFT. BED IN LOCKED AND LOWEST POSITION. CALL LIGHT IN PLACE. WILL MONITOR UNTIL SHIFT CHANGE.
--- NOTE | 2022-04-27 05:22 | NUR ---
SHIFT SUMMARY: PATIENT HAS NO ACUTE CHANGES. VSS, INC. OF 1 LOOSE BM. ATE 100% OF SNACK AND DENIES PAIN OR DISCOMFORT.
[2022-04-27 12:01] LABS: SARS-Cov-2 (COVID-19) PCR, MMC NEGATIVE (NEGATIVE)
[2022-04-27] MEDS ORDERED: TAMS.4ER PO (12:19)
[2022-04-27] MEDS ORDERED: Seroquel Xr50 MG PO (12:19)
--- NOTE | 2022-04-27 13:35 | NUR ---
PT TRANFERED TO THE MEDICAL CENTER AT 1315. PT HAS BEEN AO AND COOPERATIVE OF CARE. PT IS A ONE PERSON ASSIST AND IS CALLING APPROPRIATELY. NO DISTRESS NOTED. REPORT CALLED TO THE MEDICAL CENTER PRIOR TO TRANPORT. ALL PERSONAL BELONGINGS WERE COLLECTED AND SENT WITH PT. NO DISTRESS NOTED. PACKET SENT WITH [facility] [employer] LEAD TEACHER.
== END 2022-04-27 13:17 | DRG 329 ==
LOC: ORSCMMR 09:02 → ORD 10:30 → ORSCMMR 10:30 → SURS 15:20 → ORSCMMR 15:21 → ICUE 15:23 → MEDS 15:23 → SURS 15:23 → ORSCMMR 04-13 17:52 → SURS 04-13 17:54 → ORSCMMR 04-13 17:54 → PCU 04-14 10:53 → ICUE 04-14 11:23 → SURS 04-15 14:59 → MEDS 04-17 10:22
PROVIDERS: Internal Medicine; Internal Medicine Critical Care Medicine; ADMIT Surgery
PROC: 3E03329 Introduction of Other Anti-infective into Peripheral Vein, Percutaneous Approach (ICD-10-PCS; 2022-04-11)
PROC: 0DTF4ZZ Resection of Right Large Intestine, Percutaneous Endoscopic Approach (ICD-10-PCS; 2022-04-11)
PROC: 3E033XZ Introduction of Vasopressor into Peripheral Vein, Percutaneous Approach (ICD-10-PCS; principal; 2022-04-11 10:30)
PROC: 5A09457 Assistance with Respiratory Ventilation, 24-96 Consecutive Hours, Continuous Positive Airway Pressure (ICD-10-PCS; 2022-04-14)
PROC: 02HV33Z Insertion of Infusion Device into Superior Vena Cava, Percutaneous Approach (ICD-10-PCS; 2022-04-16)
DX: C18.3 Malignant neoplasm of hepatic flexure (principal); A41.9 Sepsis, unspecified organism; J69.0 Pneumonitis due to inhalation of food and vomit; J96.01 Acute respiratory failure with hypoxia; R57.1 Hypovolemic shock; R65.21 Severe sepsis with septic shock; N17.0 Acute kidney failure with tubular necrosis; K56.0 Paralytic ileus; F05 Delirium due to known physiological condition; Z20.822 Contact with and (suspected) exposure to COVID-19; Z78.1 Physical restraint status; I10 Essential (primary) hypertension; M19.90 Unspecified osteoarthritis, unspecified site; Z98.890 Other specified postprocedural states; Z87.891 Personal history of nicotine dependence; Z89.021 Acquired absence of right finger(s); Z79.891 Long term (current) use of opiate analgesic
CPT/HCPCS: 0241U; 36415; 36569; 51702; 71045; 71260; 74177; 80048; 80053; 80069; 81001; 82330; 82947; 83735; 84145; 84484; 85014; 85018; 85025; 85027; 87086; 88309; 93005; 93010; 94660; 94664; 94760; 97110; 97116; 97162; 97166; 97530; 97535; A9270; C1751; J0694; J1100; J1170; J1644; J1650; J1885; J2370; J2405; J2543; J2704; J2795; J3010; J3475; J7030; J7050; J7060; J7120; Q9967; U0004

== ENCOUNTER → 2022-10-23 | Outpatient (CLI) | payer MEDICARE ==
[~2022-10-23] MED LIST changes: +Seroquel Xr50 MG PO; +TAMS.4ER PO
[2022-10-23 19:33] LABS: Astrovirus Detected (NOT DETECT)
[2022-10-23 19:34] LABS: Adenovirus F 40/41 Not Detected (NOT DETECT); Campylobacter Sp Not Detected (NOT DETECT); Cryptosporidium Not Detected (NOT DETECT); Cyclospora Cayetanensis Not Detected (NOT DETECT); E. Coli O157 Not Detected (NOT DETECT); Entamoeba Histolytica Not Detected (NOT DETECT); Enteroaggregative E. coli-EAEC Not Detected (NOT DETECT); Enteropathogenic E. coli-EPEC Not Detected (NOT DETECT); Enterotoxigenic E. coli-ETEC Not Detected (NOT DETECT); Giardia Lamblia Not Detected (NOT DETECT); Norovirus GI/GII Not Detected (NOT DETECT); Plesiomonas Shigelloides Not Detected (NOT DETECT); Rotavirus A Not Detected (NOT DETECT); Salmonella Sp Not Detected (NOT DETECT); Sapovirus Not Detected (NOT DETECT); Shiga Toxin-prod E. coli-STEC Not Detected (NOT DETECT); Shigella/Enteroin E. coli-EIEC Not Detected (NOT DETECT); Vibrio Cholerae Not Detected (NOT DETECT); Vibrio Sp Not Detected (NOT DETECT); Yersinia Enterocolitica Not Detected (NOT DETECT)
== END | disposition home or self-care (01) ==
LOC: LAB 14:54 → LAB SHORT 14:54
PROVIDERS: Physician Assistant
DX: R19.7 Diarrhea, unspecified (principal)
CPT/HCPCS: 87507

== ENCOUNTER 2022-11-06 14:55 | Inpatient (IN) | payer MEDICARE ==
[2022-11-06] VITALS (25 sets, daily range): BP systolic 89–149; BP diastolic 51–120
[~2022-11-06] VITALS: Ht 172.7 cm; Wt 72.7 kg
[2022-11-06 15:15] LABS: Calcium, Ionized (POC) 1.13 mmol/L (1.10-1.46); Chloride (POC) 105 mmol/L (98-108); Creatinine (POC) 0.9 mg/dL (0.8-1.3); Glucose (ISTAT POC) 184 mg/dL (70-99); Hemoglobin (POC) 14.6 g/dL (13.5-17.5); Potassium (POC) 3.7 mmol/L (3.5-5.5); Sodium (POC) 137 mmol/L (135-148); Total CO2 (POC) 21 mmol/L (21-32)
[2022-11-06 15:21] LABS: Hematocrit 39.4 % (37.0-53.0); Hemoglobin 14.3 g/dL (13.5-17.5); Mean Corpuscular HGB 31.8 pg (26.0-34.0); Mean Corpuscular HGB Conc 36.3 g/dL (31.5-36.5); Mean Corpuscular Volume 88 fL (80-100); Platelet Count 237 K/mm3 (150-400); RDW Standard Deviation 41.4 fL (35.1-46.3)
[2022-11-06 15:40] LABS: International Normalized Ratio 1.01; Prothrombin Time Results 10.6 Sec (9.7-11.5)
[2022-11-06 15:42] LABS: Albumin, Blood 3.8 g/dL (3.4-5.0); Albumin/Globulin Ratio 0.8 (0.8-1.8); Bilirubin, Total 0.6 mg/dL (0.1-1.0); Bun/Creatinine Ratio 19.9 (12.0-20.0); Calcium, Blood 9.2 mg/dL (8.5-10.1); Creatinine, Blood 0.96 mg/dL (0.60-1.20); Globulin, Blood 4.7 g/dL (2.2-4.0); Magnesium, Blood 2.3 mg/dL (1.6-2.4); Potassium, Blood 3.6 mmol/L (3.5-5.5); Total Protein, Blood 8.5 g/dL (6.4-8.2)
[2022-11-06 16:30] LABS: BASOPHILS PERCENT MAN 0 % (0-2); EOSINOPHILS ABSOLUTE MAN 0.33 K/mm3 (0.00-0.68); EOSINOPHILS PERCENT MAN 3 % (0-6); LYMPHOCYTES ABSOLUTE MAN 6.16 K/mm3 (0.84-5.20); LYMPHOCYTES PERCENT MAN 56 % (21-46); MONOCYTES ABSOLUTE MAN 0.55 K/mm3 (0.16-1.47); MONOCYTES PERCENT MAN 5 % (4-13); NEUTROPHILS ABSOLUTE MAN 3.96 K/mm3 (1.96-9.15); SEG NEUTROPHILS PERCENT MAN 36 % (41-73); TOTAL CELLS COUNTED 100
--- NOTE | 2022-11-06 16:53 | NUR ---
ASSUMED CARE: PT ARRIVED FROM HEART CENTER VIA BED WITH HEART CENTER STAFF. TR BAND TO RIGHT RADIAL WITH [address] NSR ON TELE WITH ST ELEVATION NOTED. DR SHUKLA WAS AT BEDSIDE AND AWARE OF ST ELEVATION. PT DENIES CP AT THIS TIME. ON RA. NO ACUTE NEEDS OR CONCERNS AT PRESENT.
--- NOTE | 2022-11-06 17:16 | NUR ---
PT CONCERNED ABOUT WHEREABOUTS OF PHONE AND WALLET. CNC SPECIALIST CALLING AMBULANCE SERVICE AND PT IS ON PHONE WITH FAMILY MEMBER, MADISON. PHONE AND WALLET ARE NOT AMONG PT BELONGINGS.
--- NOTE | 2022-11-06 18:50 | NUR ---
PT'S NEPHEW AND FRIEND ARRIVED AND GAVE PT HIS WALLET. STATED THAT HIS DIANE SWEATSHIRT WAS PUT BACK IN HIS TRAILER AND HIS PHONE IS LIKELY IN IT. ROLDAN STATED THAT HE WISHES FOR PT TO BE FULL CODE. PT IS AGREEABLE TO THIS. PT'S FRIEND AND FAMILY ARE CONCERNED ABOUT PT GOING HOME ALONE. STATED WE WILL DISCUSS WITH CARE MANAGEMENT TOMORROW. WILL REPORT TO NIGHT RN WELL. PT DENIES CP. RHYTHM REMAINS NSR WITH ST ELEVATION BUT ELEVATION SEEMS DECREASED FROM EARLIER THIS SHIFT. 4CC REMOVED FROM TR BAND WITHOUT SIGN OF BLEEDING OR SWELLING.
--- NOTE | 2022-11-06 19:57 | NUR ---
ASSUMED CARE: 0715- Received bedside report- checked Right radial TR band site- WNL. Per previous RN, 8ml of air remain (4ml removed previously). Vitals stable, no complaints of chest pain.
[2022-11-07] VITALS (13 sets, daily range): BP systolic 85–115; BP diastolic 55–76
[2022-11-07 03:15] LABS: Hemoglobin 12.1 g/dL (13.5-17.5); Mean Corpuscular HGB 31.8 pg (26.0-34.0); Mean Corpuscular HGB Conc 35.6 g/dL (31.5-36.5); Mean Corpuscular Volume 89 fL (80-100); Mean Platelet Volume 8.9 fL (9.1-12.4); Platelet Count 182 K/mm3 (150-400); RDW Coefficient Variation 13.2 % (11.7-14.2); RDW Standard Deviation 43.1 fL (35.1-46.3); Red Blood Cell Count 3.81 M/mm3 (4.30-5.90); White Blood Cell Count 7.39 K/mm3 (4.00-11.30)
[2022-11-07 03:31] LABS: Bun/Creatinine Ratio 23.4 (12.0-20.0); Calcium, Blood 8.4 mg/dL (8.5-10.1); Creatinine, Blood 0.9 mg/dL (0.60-1.20); Potassium, Blood 4.1 mmol/L (3.5-5.5)
--- NOTE | 2022-11-07 04:53 | NUR ---
SHIFT SUMMARY: Vitals stable overnight. Heart rhythm went from NSR with ST elevation to NSR vs Sinus bradycardia with T wave inversion, no ST elevation noted on monitor. Will check 12 lead EKG this morning. No complaints of chest pain or shortness of breath. TR band removed, tegaderm applied. Site WNL. He had an episode of ventricular bigeminy last night that resolved on its own. Occasional PVCs noted. Remained on room air, lungs clear. Walked to bathroom with 1 person assist and a walker. Social work consult placed due to discharge concerns, as patient lives alone and may need assistance.
--- NOTE | 2022-11-07 07:30 | NUR ---
PT A&OX4-SHISHMAREF IRA AT BASELINE. PT DENIES CP OR SOB. ECG SHOWS SR WITH PAC'S RATE 60'S. SBP 80-90'S. NO NOTED EDEMA. RIGHT RADIAL SITE CLEAR. NO BLEEDING OR HEMATOMA LUNGS CLEAR-SATS>90% ON RA. PT DENIES GI DISTRESS. PT VOIDS VIA URINAL PRN. SKIN C/D/I. DR. SHUKLA GIVEN FULL UPDATE-ORDERS GIVEN AND PT CHANGED TO PCU STATUS. ECHO ORDERED.
--- NOTE | 2022-11-07 14:35 | NUR ---
Pt. is awake in bed and welcomes my visit. Pt. is pleasant but unsettled about decsions regarding his future disgnosis. Listened with empathy and a calming presence. Facilitated a lengthy life review. Pt. displays evidence of being engaged and aware. Normalized the Pt. experience and prayed with the Pt. Pt. verbalized gratitude for the extended spiritual care visit, and welcomed this cooker syrup to return.
--- NOTE | 2022-11-07 15:44 | NUR ---
NO ACUTE CHANGES. REPORT PHONED TO ALVIN CASTRO IN PREP TO TRANSFER PT TO PCU 16.
--- NOTE | 2022-11-07 16:20 | NUR ---
PT TRANSFERED FROM ICU TO PCU 16, HE EDUCATED THOROUGHLY ABOUT USING CALL LIGHT, BED ALARM ON, CALL LIGHT WITHIN REACH. PT A/O X3, EXPRESSED UNDERSTANDING ABOUT USING CALL LIGHT TO PREVENT FALLS.
[2022-11-08] VITALS (35 sets, daily range): BP systolic 57–112; BP diastolic 22–66
--- NOTE | 2022-11-08 05:48 | NUR ---
Assumed care of patient at 1900. A/Ox2 (unsure month/year and location). Fall precautions in place as patient forgets to use call light. Maintains over 95% on RA, LS clear t/o. SB 40-50's with occassional pauses up to 2.41 seconds, and evident T wave inversions. Denies CP/pressure, VSS. R radial site C/D/I and without hematoma. Patient unable to urinate, bladder scan over 400 so straight cath was performed per protocol, patient tolerated well. Home medications reordered this shift, patient able to sleep half of the night. Will report to dayshift RN.
--- NOTE | 2022-11-08 09:18 | NUR ---
PHONE CALL TO DR. SHUKLA REGARDING PATIENT'S INCREASED QTC. QTC INCREASED FROM 0.40 TO 0.56. TELEPHONE ORDER TO D/C PATIENT'S SEROQUEL. THIS RN ALSO SPOKE WITH PATIENT'S NEPHEW, GIOVANNI. GIOVANNI IS PATIENT'S NEXT OF KIN AND YADIEL ASKED US TO CONTACT HIM THIS AM REGARDING THE NEXT STEPS IN HIS PLAN OF CARE. DR. SHUKLA NOTIFIED AND PLANNING TO CALL GIOVANNI TO DISCUSS TREATMENT OPTIONS.
--- NOTE | 2022-11-08 15:52 | NUR ---
PHONE CALL TO MD PT SBP IN THE 80'S WITH MAP OF 64. DR SHUKLA NOTIFIED. ORDERS TO HOLD LISINOPRIL FOR SBP LESS THAN 90. ENCOURAGE PT TO EAT AND DRINK PLENTY OF FLUIDS. THIS RN HAS PT BP CYCLING FREQUENTLY AND WILL CONTINUE TO MONITOR. DR SHUKLA TO BE NOTIFIED OF ANY FURTHER DROP.
--- NOTE | 2022-11-08 17:28 | NUR ---
SHIFT SUMMARY PT A/O X 2-3. PT ORIENTED TO HIMSELF, THE HOSPITAL, HIS FAMILY, BUT GIVES INCORRECT DATE. PT EXTREMELY FATIGUED MAJORITY OF THE SHIFT, LIKELY DUE TO PT RECEIVING SEROQUEL YESTERDAY EVENING. PT NOW EASILY AROUSABLE. PT DECLINED BOTH BREAKFAST AND LUNCH BUT IS NOW AWAKE AND EATING DINNER. PT SPO2 >92% ON RA. PT ON TELE, RATE IN THE 50-70'S. PT QTC PROLONGED EARLIER IN SHIFT, BUT NOW DOWN TO 0.46 FROM 0.56. SEE PREVIOUS NOTES. PT BP HAS BEEN SOFT, BUT IS ALSO IMPROVED AT THIS TIME WITH A SBP IN THE 80'S BUT A MAP OF 71. SEE PREVIOUS NOTES. DR. SHUKLA IN TALKING WITH PATIENT AT THIS TIME REGARDING POSSIBLE ANGIO TOMORROW. PT NEPHEW GIOVANNI WILL BE HERE IN THE AM TO HELP PATIENT DECIDE THE NEXT STEPS IN HIS CARE, PER THE PATIENT'S REQUEST. PATIENT WILL RECEIVE A CLEAR LIQUID BREAKFAST TOMORROW AM AND THEN NPO FOLLOWING FOR POSSIBLE PROCEDURE. WILL CONTINUE TO CARE FOR PT AND REPORT TO ONCOMING RN.
--- NOTE | 2022-11-08 20:35 | NUR ---
Contacted resident regarding trending down BP with MAPs in mid 50's, order obtained for 250ml bolus and 100ml/hr NS maintenance to start now. Fluids pulled on override. After 250ml bolus, MAP is 57.
--- NOTE | 2022-11-08 20:53 | NUR ---
Dr. Welsh contacted regarding tanking BP's, order for 500ml bolus, and if MAP not over 80, then another 500ml bolus. Also DCing Lisinopril.
--- NOTE | 2022-11-08 22:45 | NUR ---
Despite fluid resuscitation, patients BP continued to decrease with MAP in 30's. Dr. Welsh contacted and order to transfer to ICU for dopamine.
--- NOTE | 2022-11-08 23:00 | NUR ---
PT TRANSFERED TO ICU 14 FROM PCU. PT IS ALERT & ABLE TO COMMUNICATE HIS NEEDS. PT DENIES SOB, CHEST PAIN OR NAUSEA, PT CO THAT HE IS COLD AFTER BLANKETS REMOVED. PT HAS FEVER OF 102.4. PT IS ON RA. DOPAMINE STARTED 2.5MCG/KG, PERIPHERALLY, IV SITE COMFIRMED APPROPRIATE. DR SHUKLA TO PT BEDSIDE AT THIS TIME. DISCUSSED PLAN, CONSULT HOSPITALIST, CARDIAC CATH PLANNED FOR AM IS NOW ON HOLD. CALL LIGHT IN REACH.
[2022-11-08 23:51] LABS: BASOPHILS ABSOLUTE AUTO 0.03 K/mm3 (0.00-0.23); BASOPHILS PERCENT AUTO 0 % (0-2); EOSINOPHILS ABSOLUTE AUTO 0.04 K/mm3 (0.00-0.68); EOSINOPHILS PERCENT AUTO 1 % (0-6); Hematocrit 33.1 % (37.0-53.0); Hemoglobin 11.5 g/dL (13.5-17.5); IMMATURE GRAN ABSOLUTE AUTO 0.02 K/mm3 (0.00-0.10); IMMATURE GRAN PERCENT AUTO 0 % (0-1); LYMPHOCYTES ABSOLUTE AUTO 2.09 K/mm3 (0.84-5.20); LYMPHOCYTES PERCENT AUTO 24 % (21-46); MONOCYTES ABSOLUTE AUTO 0.95 K/mm3 (0.16-1.47); MONOCYTES PERCENT AUTO 11 % (4-13); Mean Corpuscular HGB 31.9 pg (26.0-34.0); Mean Corpuscular HGB Conc 34.7 g/dL (31.5-36.5); Mean Corpuscular Volume 92 fL (80-100); Mean Platelet Volume 9.5 fL (9.1-12.4); NEUTROPHILS ABSOLUTE AUTO 5.63 K/mm3 (1.96-9.15); NEUTROPHILS PERCENT AUTO 64 % (41-73); Platelet Count 147 K/mm3 (150-400); RDW Coefficient Variation 13.5 % (11.7-14.2); RDW Standard Deviation 45.9 fL (35.1-46.3); White Blood Cell Count 8.76 K/mm3 (4.00-11.30)
[2022-11-09] VITALS (89 sets, daily range): BP systolic 73–136; BP diastolic 47–90
--- NOTE | 2022-11-09 02:09 | NUR ---
CALL TO FAMILY CALL TO NEPHEW (MADISON) TO NOTIFY OF STATUS CHANGE AND TRANSFER TO ICU. PROVIDED UPDATE AND ANSWERED QUESTIONS, MADISON STATES THAT HE WILL PLAN TO COME IN THE MORNING AND WOULD APPRECIATE A CALL SOONER IF CONDITION WORSENS. PRIMARY RN TERESITA NOTIFIED.
[2022-11-09 02:24] LABS: Source, Urine Foley catheter
[2022-11-09 02:34] LABS: Bilirubin, Urine Neg (Neg); Blood, Urine Neg (Neg); Glucose Qualitative, Urine Neg (Neg); Ketones, Urine Neg (Neg); Leukocyte Esterase, Urine Neg (Neg); Nitrite, Urine Neg (Neg); Protein, Urine 1+ (Neg); Specific Gravity, Urine 1.015 (1.003-1.022); Urobilinogen, Urine NORM (Normal)
[2022-11-09 02:44] LABS: Appearance, Urine Clear (Clear); Color, Urine Yellow (P-Yellow)
--- NOTE | 2022-11-09 03:00 | NUR ---
URINE OUTPUT: REPORTED THAT PT HAD BEEN BLADDER SCANNED SEVERAL TIMES OVER LAST 24H FOR INABILITY TO VOID, AND THAT PT HAD BEEN STRAIGHT CATHED. PT BLADDER SCANNED FOR 713ML OF URINE. ATTEMPTED TO ASSIST PT TO VOID W URINAL, AND AFTER SOME TIME, PT UNABLE TO VOID. PT NOW W DOPAMINE INFUSING FOR HYPOTENSION DESPITE FLUID BOLUS. TEMP YEUNG PLACED WO DIFFICULTY AND UA SENT.
--- NOTE | 2022-11-09 05:15 | NUR ---
PT DOES HAVE LOW GRADE TEMP. 99.2 CURRENTLY. CONTINUES ON DOPAMINE @ 2.5 MCG'S. MAINTAINS MAP > 65. PT HAS NO COMPLAINTS OF CHEST PAIN OR PRESSURE. WILL CONTINUE TO MONITOR PT, AND WILL REPORT OFF TO ONCOMING RN.
--- NOTE | 2022-11-09 08:48 | NUR ---
YADIEL DENIES ANY COMPLAINTS, ASKS ABOUT USING THE URINAL, REMINDED THAT HE HAS A URINARY CATHETER. ATE SOME BREAKFAST, WANTED TO RETURN TO SLEEP. DR. SHUKLA IN AT 0710, STATES NO RETURN TO [employer] FLATBED DRIVER AT THIS TIME.
--- NOTE | 2022-11-09 09:53 | NUR ---
PT REQUESTED HE BE ALLOWED TO SLEEP TODAY, REMINDED HIM THAT IT WAS DAY TIME. FAMILY HAS COME TO VISIT.
--- NOTE | 2022-11-09 13:01 | NUR ---
CALLED ABOUT 'S CONCERN REGARDING PT NOT BEING ON ASPIRIN. ORDERS RECEIVED AND GIVEN. PT THEN ASKED TO GO TO SLEEP. SAID HE WASN'T INTER- ESTED IN EATING LUNCH BUT WANTED TO SLEEP. DENIES ANY OTHER COMPLAINTS. DOPA- MINE REMAINS @ 3MCG/KG/HR. SBP 100'S.
--- NOTE | 2022-11-09 16:07 | NUR ---
Pt is awake in bed, in a darkened room and welcomes my visit. Pt. grabbed my hand and graspedit for the entire visit. Pt. displayed evidence of kaci and gratitude. Matters of kaci and belief were discussed. Pt. displayed evidence of sameer and peace. Prayed with Pt. Pt. verbalized gratitude for the spiritual care visit.
--- NOTE | 2022-11-09 22:15 | NUR ---
ASSUMED CARE AT 1900 PT IS A/O X2-3; OCCATIONALLY CANNOT RECALL TOWN; OVERESTIMATES ABILITIES AND CAN BE DEFENSIVE REGARDING CARE. SPO2 >98% ON RA. TEMP CLIMBING, CURRENTLY 100.6; PRN TYLENOL GIVEN; PT ADAMANT THAT HIS BLANKETS STAY ON. HR 70'S. SBP 90-110; DOPAMINE INFUSING AT 2MCG/KG/MIN; NO C/O CHEST PAIN OR PRESSURE. TOLERATING PO INTAKE WELL. YEUNG IN PLACE AND DRAINING TO GRAVITY. RT RADIAL SITE SHOWS NO SIGNS OF BLEEDING OR HEMATOMA; TEGADERM C/D/I. NS INFUSING AT 100ML/HR. SEE SHIFT ASSESSMENT FOR FULL ASSESSMENT.
--- NOTE | 2022-11-09 22:46 | NUR ---
UPDATE PT TEMP UP TO 100.9 AFTER TYLENOL; HE CONT TO BE VERY ADAMANT TO NOT HAVE HIS BLANKETS REMOVED STATING "I WOULD RATHER THAN FREEZE TO !". COMPROMISE MADE TO HAVE A FAN BLOW ON LOW TOWARDS HIS FACE. WCPAT.
[2022-11-10] VITALS (72 sets, daily range): BP systolic 82–132; BP diastolic 47–85
[2022-11-10 03:55] LABS: BASOPHILS ABSOLUTE AUTO 0.02 K/mm3 (0.00-0.23); BASOPHILS PERCENT AUTO 0 % (0-2); EOSINOPHILS ABSOLUTE AUTO 0.14 K/mm3 (0.00-0.68); EOSINOPHILS PERCENT AUTO 2 % (0-6); Hematocrit 30.9 % (37.0-53.0); Hemoglobin 10.8 g/dL (13.5-17.5); IMMATURE GRAN ABSOLUTE AUTO 0.02 K/mm3 (0.00-0.10); IMMATURE GRAN PERCENT AUTO 0 % (0-1); LYMPHOCYTES ABSOLUTE AUTO 1.38 K/mm3 (0.84-5.20); LYMPHOCYTES PERCENT AUTO 21 % (21-46); MONOCYTES ABSOLUTE AUTO 0.62 K/mm3 (0.16-1.47); MONOCYTES PERCENT AUTO 9 % (4-13); Mean Corpuscular Volume 92 fL (80-100); Mean Platelet Volume 9.6 fL (9.1-12.4); NEUTROPHILS ABSOLUTE AUTO 4.46 K/mm3 (1.96-9.15); NEUTROPHILS PERCENT AUTO 67 % (41-73); Platelet Count 148 K/mm3 (150-400); RDW Coefficient Variation 13.1 % (11.7-14.2); Red Blood Cell Count 3.37 M/mm3 (4.30-5.90); White Blood Cell Count 6.64 K/mm3 (4.00-11.30)
[2022-11-10 04:12] LABS: Albumin, Blood 2.4 g/dL (3.4-5.0); Anion Gap 4 mmol/L (6-16); Blood Urea Nitrogen 21 mg/dL (8-24); Bun/Creatinine Ratio 25.9 (12.0-20.0); CO2, Blood 21 mmol/L (21-32); Calcium, Blood 7.8 mg/dL (8.5-10.1); Chloride, Blood 111 mmol/L (98-108); Creatinine, Blood 0.81 mg/dL (0.60-1.20); Glomerular Filtration Rate 89 (60-); Glucose, Blood 172 mg/dL (70-99); Phosphorus, Blood 2.6 mg/dL (2.5-4.9); Potassium, Blood 3.4 mmol/L (3.5-5.5); Sodium, Blood 136 mmol/L (136-145)
--- NOTE | 2022-11-10 06:25 | NUR ---
END OF SHIFT SUMMARY NO ACUTE CHANGES OVER NIGHT. PT WAS BECOMING MORE CONFUSED T/O THE NIGHT, AFTER A FEW HOURS OF SLEEP THIS HAS IMPROVED. MAX TEMP 101.0, CURRENTLY 98.8. SPO2 >98% ON RA. HR 60-80 AND OCCATIONALLY INTO THE 40'S BUT QUICKLY RECOVERS. SBP 80-100; ATTEMPTED TO TITRATE DOPAMINE DOWN BUT UNABLE TO KEEP SPB >90 DURING THIS; DOPAMINE INFUSING AT 2MCG/MIN NOW. TOLERATING PO WATER WELL. YEUNG INPLACE WITH 850ML OUT. RT RADIAL SITE WNL. NS INFUSING AT 100ML/HR. WILL REPORT TO AM RN WHEN AVAILABLE.
--- NOTE | 2022-11-10 11:27 | NUR ---
SPOKE WITH DR. US, HE IS NOT PLANNING ON TAKING PT TO PAYROLL ACCOUNTING SPECIALIST THEREFORE IT IS OK TO FEED HIM AND GIVE HIS LOVENOX.
[2022-11-10 14:00] LABS: Albumin, Blood 2.6 g/dL (3.4-5.0); Albumin/Globulin Ratio 0.6 (0.8-1.8); Bilirubin, Direct 0.3 mg/dL (0.0-0.3); Bilirubin, Indirect 0.5 mg/dL (0.1-0.7); Bilirubin, Total 0.8 mg/dL (0.1-1.0); Globulin, Blood 4.3 g/dL (2.2-4.0); Total Protein, Blood 6.9 g/dL (6.4-8.2)
--- NOTE | 2022-11-10 14:01 | NUR ---
Spiritual Care Visit. Pt. is awake in bed and welcmoes my visit. Pt. is pleasant and we quickly re-establish rapport. Pt. displays evidence of a solid kaci though we engage in a Life Review of his life of his early years. Pt. displays evidence of being encouraged. Prayed with Pt. Pt. verbalized gratitude for the spiritual care visit.
--- NOTE | 2022-11-10 18:14 | NUR ---
SUMMARY PT A/O TO PERSON, PLACE, AND EVENT TODAY. SOMETIMES FORGETFUL AND NEEDS REMINDERS. DENIES CP OR PRESSURE ALL DAY. OFF DOPAMINE FOR A FEW HOURS THIS EVENING. NO FEVERS TODAY. OK APPETITE. DR. US IS NOT PLANNING ON TAKING PT TO DENTAL SURGEON AGAIN THIS STAY. PT IS USING CALL LIGHT APPROPRIATELY. NO SIGN OF DISTRESS.
--- NOTE | 2022-11-10 19:46 | NUR ---
ASSUMED CARE PATIENT IS IN BED ALERT NO FAMILY AT BEDSIDE. BED ALARM ON.
[2022-11-11] VITALS (15 sets, daily range): BP systolic 96–128; BP diastolic 56–96
[2022-11-11 03:47] LABS: BASOPHILS ABSOLUTE AUTO 0.02 K/mm3 (0.00-0.23); BASOPHILS PERCENT AUTO 0 % (0-2); EOSINOPHILS ABSOLUTE AUTO 0.13 K/mm3 (0.00-0.68); EOSINOPHILS PERCENT AUTO 2 % (0-6); Hematocrit 27.2 % (37.0-53.0); Hemoglobin 9.8 g/dL (13.5-17.5); IMMATURE GRAN ABSOLUTE AUTO 0.02 K/mm3 (0.00-0.10); IMMATURE GRAN PERCENT AUTO 0 % (0-1); LYMPHOCYTES ABSOLUTE AUTO 1.43 K/mm3 (0.84-5.20); LYMPHOCYTES PERCENT AUTO 23 % (21-46); MONOCYTES ABSOLUTE AUTO 0.63 K/mm3 (0.16-1.47); MONOCYTES PERCENT AUTO 10 % (4-13); Mean Corpuscular HGB 32.2 pg (26.0-34.0); Mean Corpuscular Volume 90 fL (80-100); NEUTROPHILS ABSOLUTE AUTO 4.01 K/mm3 (1.96-9.15); NEUTROPHILS PERCENT AUTO 64 % (41-73); NRBC ABSOLUTE 0.02 K/mm3 (0.00-0.02); NRBC Auto 0.3 /100 WBC (0.0-0.2); RDW Standard Deviation 41.7 fL (35.1-46.3); Red Blood Cell Count 3.04 M/mm3 (4.30-5.90); White Blood Cell Count 6.24 K/mm3 (4.00-11.30)
[2022-11-11 03:48] LABS: Mean Platelet Volume 9.8 fL (9.1-12.4); Platelet Count 189 K/mm3 (150-400)
[2022-11-11 03:56] LABS: Anion Gap 6 mmol/L (6-16); Blood Urea Nitrogen 19 mg/dL (8-24); CO2, Blood 19 mmol/L (21-32); Calcium, Blood 7.9 mg/dL (8.5-10.1); Chloride, Blood 113 mmol/L (98-108); Cholesterol 96 mg/dL (50-200); Creatinine, Blood 0.76 mg/dL (0.60-1.20); Glomerular Filtration Rate 90 (60-); Glucose, Blood 143 mg/dL (70-99); HDL Cholesterol 24 mg/dL (>39); LDL/HDL RATIO 2.3; Low Density Lipoprotein Chol 55 mg/dL (0-110); Potassium, Blood 3.7 mmol/L (3.5-5.5); Sodium, Blood 138 mmol/L (136-145); Triglycerides 87 mg/dL (30-160); Very Low Density Lipoprot Chol 17 mg/dL (6-32)
--- NOTE | 2022-11-11 06:26 | NUR ---
PATIENT ALERT X2-3.CONFUSED PULLED OUT IV AND PULSE OX MULTIPLE TIMES THROUGH OUT SHIFT. HALLUCINATIONS AT TIMES. VSS REMAIN STABLE. YEUNG REMOVED, POST CATH VOID X1. INCONTINENT OF BOWEL.
--- NOTE | 2022-11-11 08:51 | NUR ---
CARE OF PT ASSUMED AT 0700. PT INITIALLY SLEEPING, AWAKENS TO VOICE. DENIES C/O PAIN. PT ORIENTED ONLY TO SELF AND YEAR, OTHERWISE CONFUSED. SATS 100% ON RA. BP STABLE, DOPAMINE HAS BEEN OFF SINCE YESTERDAY.
--- NOTE | 2022-11-11 11:35 | NUR ---
BED ALARM ALARMED, PT FOUND TRYING TO CLIMB OUT OF BED OVER RAIL. PT ASSISTED TO TOILET. PT VOIDED AND HAD A BM. BEDBATH GIVEN. PT ASSISTED TO CHAIR. NS DC'D
--- NOTE | 2022-11-11 17:44 | NUR ---
PT'S MENTATION CLEARED T/O SHIFT, USING CALL LIGHT APPROPRIATELY. PT UP IN CHAIR FOR 2HRS, PT DECLINED STAYING IN CHAIR FOR LONGER. DR US INTO SEE PT TODAY; PT NOW MED W TELE STATUS. TOPROL XL AND LASIX GIVEN TODAY, PT MONAE WELL, BP STABLE. PT HAS HAD GOOD URINE OUTPUT W LASIX. SOME TACHYPENA WITH EXERTION WHICH RESOLVES W REST NOTED TODAY; PT DENIES FEELING SOB. SATS 98-100% ON RA.
--- NOTE | 2022-11-11 18:33 | NUR ---
PT AWOKE FROM SLEEP AGITATED ATTEMPTING TO CLIMB OUT OF BED. PT VERY IRRITABLE, FRUSTRATED, AND BECOMING MORE CONFUSED AGAIN. PT INCONTINENT OF LARGE AMT OF URINE. PT CLEANED, LINEN CHANGED, ATTENDS PLACED. MULTIPLE WARM BLANKETS PLACED AND HEAT IN ROOM INCREASED PT STATES HE IS ANGRY ABOUT BEING COLD. PT NOW SLEEPING, APPEARS COMFORTABLE.
--- NOTE | 2022-11-11 19:09 | NUR ---
ASSUMED CARE PATIENT ALERT BUT CONFUSED. NO FAMILY AT BEDSIDE. IV SALINE LOCKED. BED ALARM ON
[2022-11-12] VITALS (7 sets, daily range): BP systolic 91–114; BP diastolic 56–78
[2022-11-12 03:45] LABS: Bun/Creatinine Ratio 19.6 (12.0-20.0); Creatinine, Blood 0.87 mg/dL (0.60-1.20); Potassium, Blood 3.5 mmol/L (3.5-5.5)
--- NOTE | 2022-11-12 05:53 | NUR ---
SHIFT SUMMARY PATIENT REMAINS ALERT WITH PERIODIC CONFUSION/FORGETFULLNESS EASILY REORIENTED. HR STABLE, MAP HAVE BEEN >=65, ADEQUATE UO. ZERO INCONTINENT EPISODES. BED ALARM ON, CALL LIGHT WITHIN REACH.
--- NOTE | 2022-11-12 08:49 | NUR ---
CARE OF PT ASSUMED AT 0700. PT AWAKE, ORIENTED TO SELF, DATE, PLACE, SITUATION. PT MORE IRRITABLE THIS AM. UP TO CHAIR FOR BREAKFAST. PT REQUESTS TO BE "LEFT ALONE, AND KEPT WARM". PT STATES HE WOULD "LIKE THIS HOSPITALIZATION TO BE OVER WITH". PT DECLINES SITTING IN CHAIR LONGER THAN FOR BREAKFAST. BP STABLE. AFEBRILE. CRACKLES TO BASES, SATS 100% ON RA, PT DENIES SOB OR CHEST PAIN.
--- NOTE | 2022-11-12 13:10 | NUR ---
PT DECLINED LUNCH, DECLINED BATH, DECLINED OOB TO CHAIR. REPORT GIVEN TO MED REYMUNDO RN. PT TO ROOM 326 AT 1310 IN STABLE CONDITION.
--- NOTE | 2022-11-12 17:24 | NUR ---
Review of EMR and PC orders prior to my visit to pt. Cardiology note of yesterday stated pt expressed wishes for DNR status. Met with pt, who had recently been transferred from ICU to medical floor. He was curled up on right side with blankets up around his face, appeared to be resting but woke fully upon entering the room and was agreeable to my visit. He states he lives alone. He states he does not cook but someone brings him taco pete or a hamburger every day. He does not remember the conversation with his Dr yesterday about his wishes regarding CPR but states he "just wants to go if something happens" and "when I I want to stay ". Pt states he would not want to be placed on a ventilator if he was unable to breathe on his own and he would not want to be shocked. He states he is not sure he would want to return to the hospital for heart problems again. He denies pain at this time. His only c/o currently is being tired. Updated pt's hospitalist and RN re: above. VO for DNR and POLST completed. POLST awaiting Dr's signature and then we will process for scanning into pt's medical record. I was not able to reach family member listed on face sheet this afternoon/george.
--- NOTE | 2022-11-12 18:38 | NUR ---
PT AAOX1 THIS SHIFT. IRRITABLE BUT CALM. PT ONLY ORIENTED TO SELF. COOPERATIVE. DOES NOT CALL APPROPRIATELY. IMPULSIVE.
--- NOTE | 2022-11-12 18:42 | NUR ---
TRANSFER- PT ARRIVED TO MEDICAL FLOOR IN STABLE CONDITION AFTER RECEIVING REPORT FROM HIGHWAY INSPECTOR THIS AFTERNOON.
--- NOTE | 2022-11-12 18:45 | NUR ---
VERBAL FROM AICHA US TO RIA YAN.
--- NOTE | 2022-11-12 19:24 | NUR ---
TRANSFER NOTE FOR SKIN ASSESSMENT: PT HAD REDDENED COCCYX-BLANCHABLE. RIGHT PINKY TOE HAS SCAB. PT IS NISSING DIGITS 2-4 ON RIGHT HAND. NO OTHER SKIN ISSUES FOUND.
[2022-11-13 03:12] VITALS: BP 107/64
[2022-11-13 07:19] VITALS: BP 106/64
[2022-11-13 08:39] LABS: BASOPHILS ABSOLUTE AUTO 0.03 K/mm3 (0.00-0.23); BASOPHILS PERCENT AUTO 1 % (0-2); EOSINOPHILS PERCENT AUTO 3 % (0-6); Hematocrit 29.5 % (37.0-53.0); Hemoglobin 10.5 g/dL (13.5-17.5); IMMATURE GRAN ABSOLUTE AUTO 0.03 K/mm3 (0.00-0.10); IMMATURE GRAN PERCENT AUTO 1 % (0-1); LYMPHOCYTES PERCENT AUTO 20 % (21-46); MONOCYTES ABSOLUTE AUTO 0.54 K/mm3 (0.16-1.47); MONOCYTES PERCENT AUTO 8 % (4-13); Mean Corpuscular HGB 31.9 pg (26.0-34.0); Mean Corpuscular HGB Conc 35.6 g/dL (31.5-36.5); Mean Corpuscular Volume 90 fL (80-100); Mean Platelet Volume 9.1 fL (9.1-12.4); NEUTROPHILS ABSOLUTE AUTO 4.37 K/mm3 (1.96-9.15); NEUTROPHILS PERCENT AUTO 68 % (41-73); Platelet Count 229 K/mm3 (150-400); RDW Coefficient Variation 13.2 % (11.7-14.2); RDW Standard Deviation 43.2 fL (35.1-46.3); Red Blood Cell Count 3.29 M/mm3 (4.30-5.90); White Blood Cell Count 6.47 K/mm3 (4.00-11.30)
--- NOTE | 2022-11-13 12:56 | NUR ---
PT WALKED FOR 15 MINUTES IN THE [place] WITH NO ISSUES. PT USED HIS WALKER. GAITBELT WAS ALSO USED FOR SAFETY.
[2022-11-13 16:03] VITALS: BP 109/75
--- NOTE | 2022-11-13 18:08 | NUR ---
SHIFT SUMMARY- PT AAOX1-2 THIS SHIFT. PT MOSTLY CALM AND COOPERATIVE THIS SHIFT. PT DID WALK 15 MINUTES IN THE HALLS TODAY WITH HIS WALKER.
[2022-11-13 19:21] VITALS: BP 123/79
[2022-11-14 03:37] VITALS: BP 109/63
[2022-11-14 07:26] VITALS: BP 112/70
[2022-11-14 15:51] VITALS: BP 108/68
--- NOTE | 2022-11-14 17:54 | NUR ---
SHIFT SUMMARY A&OX3-4 AND IN PLEASENT MOOD T/O SHIFT. PT C/O CONSTIPATION T/O SHIFT, PROVIDED W/ PRUNE JUICE, PLAN TO MEDICATE PER EMAR. TOLERATING PO INTAKE WELL. BED IN LOW POSITION, BED ALARM ON DUE TO IMPULSIVE. DENIES CP/PRESSURE. CALL LIGHT W/IN REACH. PLAN FOR NPO @ 0000, NS @ 100 ML/HR AT 2100. HEART BLOCKAGE REPAIR PLANNED FOR 7AM. CALL LIGHT W/IN REACH.
[2022-11-14 19:49] VITALS: BP 99/77
[2022-11-15] VITALS (41 sets, daily range): BP systolic 89–149; BP diastolic 53–96
--- NOTE | 2022-11-15 09:30 | NUR ---
RECEIVED PT FROM HEART NUNDA S/P ANGIOPLASTY TO STENTS IN RCA. THESE STENTS WERE PLACED ON 11/06/22. THE PLAN TODAY WAS TO ADDRESS THE LEFT MAIN CORONARY, BUT ANGIOGRAM REVEALED THE CLOTS TO THE RCA. PT AWAKENS TO VOICE, BUT IS HOPI AT BASELINE. PT DENIES CP OR SOB. 12 LEAD ECG DONE ON ARRIVAL TO ICU. ECG SHOWS SR WITH RATE 70'S. SBP 140'S. PT PULSES PER DOPPLER, UNABLE TO FIND DP PULSES WITH DOPPLER. BOTH FEET ARE WARM AND PINK. LUNGS CLEAR. SATS>90% ON RA. PT GIVEN ENSURE SHAKE WITH ASSISTANCE-CBG 128. PT ABLE TO SWALLOW MEDS WITHOUT DIFFICULTY. RIGHT FEMORAL PERCLOSE SITE CLEAR. NO BLEEDING OR HEMATOMA. LEFT FEMORAL MICROWIRE SITE WITH KANDI/TEGADERM DRESSING. THERE IS A DIME SIZED AMOUNT OF SANGINOUS DRAINAGE TO THE KANDI DRESSING, BUT THE SITE IS C/D/I-NO BLEEDING OR HEMATOMA NOTED. FEMSTOP TO LEFT GROIN SITE WITH 100 MMHG TO DISC. PT IS FORGETFUL AT TIMES AND NEEDS FREQUENT REMINDERS. RN EXPLAINED THE IMPORTANCE OF KEEPING HIS LEGS STRAIGHT AND HEAD DOWN SEVERAL TIMES. CALL LIGHT IN REACH.
--- NOTE | 2022-11-15 10:20 | NUR ---
PT OBSERVED LIFTING HIS HEAD OFF OF THE BED. RIGHT GROIN SITE OOZING AND HEMATOMA NOTED. MANUAL PRESSURE HELD X 15 MINUTES. PT CRYING OUT "OUCH! THAT HURTS!" PT REMINDED HOW IMPORTANT IT IS TO REMAINS LYING FLAT WITH HIS LEGS STRAIGHT AND HE ACKNOWLEDGES UNDERSTANDING. FEMSTOP PLACED TO RIGTH FEMORAL SITE AFTER MANUAL PRESSURE HELD. LEFT FEMORAL MICROWIRE SITE WITH KANDI/TEGADERN DRESSING C/D/I-NO BLEEDING OR HEMATOMA. CALL LIGHT PLACED WITHIN REACH.
--- NOTE | 2022-11-15 11:30 | NUR ---
PT OBSERVED ATTEMPTING TO GET OOB. PT SCREAMING AT THE RN THAT HE "HAS TO PEE!" PT APPEARS VERY ANGRY AND ANXIOUS-VERY DIFFICULT TO RE-DIRECT. URINAL PROVIDED AND PT DID VOID VIA URINAL, BUT HE WAS INCONTINENT WELL. FORTUNATELY, BOTH GROIN SITES REMAIN UNCHANGED DESPITE PT ATTEMPTING TO GET OOB. PT REMINDED TO USE CALL LIGHT IF HE NEEDS TO VOID, OR IF HE HAS ANY PROBLEMS OF CONCERNS. TERRY CARE DONE AND NEW LOPEZ/DRY FLOW PLACED. WARM BLANKETS PROVIDED. CALL LIGHT PLACED IN PT RIGHT HAND.
--- NOTE | 2022-11-15 14:45 | NUR ---
PT HAD HIS LEFT KNEE BENT. NO CHANGE IN LEFT OR RIGHT GROIN APPEARANCE. CALL LIGHT IN REACH.
--- NOTE | 2022-11-15 15:30 | NUR ---
6 HOURS SUPINE WITH HOB FLAT COMPLETE. FEMSTOP REMOVED. RIGHT FEMORAL SITE CLEAR, NO BLEEDING OR HEMATOMA. LEFT FEMORAL SITE CLEAR-KANDI/TEGADERM DRESSING C/D/I. HOB ELEVATED TO 30 DEGREES AND NO CHANGE IN GROIN SITE APPEARANCE.
--- NOTE | 2022-11-15 17:00 | NUR ---
DR. US HERE TO SEE PT. ORDERS WRITTEN.METOPROLOL TO BE INITIATED-1ST DOSE ORDERED NOW.
--- NOTE | 2022-11-15 18:00 | NUR ---
RIGHT AND LEFT GROIN SITES STABLE-SEE CATH SITE MANAGEMENT FOR FREQUENT ASSESSMENTS. HOB 45 DEGREES. ECG CONTINUES SR WITH RATE 60'S. PT DENIES CP OR SOB. PT DENIES GI DISTRESS, BUT REFUSES DINNER-PT STATES THAT HE IS NOT HUNGRY. CBG 140-0 COVERAGE REQUIRED. PT ABLE TO VOID VIA URINAL PRN. TERRY AREA REMAINS EXCORIATED, BUT APPEARS LESS RED THAN PREVIOUS ASSESSMENTS. LOPEZ PAD CHANGED WITH LAST GROIN ASSESSMENT. PT STATES "I JUST WANT TO SLEEP TONIGHT!" PT REPORTS THAT HE HAS NOT SLEPT WELL FOR SEVERAL NIGHTS AND HE FEELS "EXHAUSTED." PT TO RESUME SEROQUEL TONIGHT PER HIS HOME DOSE AND NURSING CARES, VS, AND LABS TO BEE COORDINATED TO ALLOW FOR OPTIMUM REST.
[2022-11-16] VITALS (37 sets, daily range): BP systolic 83–145; BP diastolic 49–88
[2022-11-16 05:09] LABS: BASOPHILS ABSOLUTE AUTO 0.02 K/mm3 (0.00-0.23); BASOPHILS PERCENT AUTO 0 % (0-2); EOSINOPHILS ABSOLUTE AUTO 0.22 K/mm3 (0.00-0.68); EOSINOPHILS PERCENT AUTO 3 % (0-6); Hematocrit 27.7 % (37.0-53.0); Hemoglobin 9.5 g/dL (13.5-17.5); IMMATURE GRAN ABSOLUTE AUTO 0.03 K/mm3 (0.00-0.10); IMMATURE GRAN PERCENT AUTO 0 % (0-1); LYMPHOCYTES ABSOLUTE AUTO 1.64 K/mm3 (0.84-5.20); LYMPHOCYTES PERCENT AUTO 24 % (21-46); MONOCYTES ABSOLUTE AUTO 0.58 K/mm3 (0.16-1.47); MONOCYTES PERCENT AUTO 9 % (4-13); Mean Corpuscular HGB 31.4 pg (26.0-34.0); Mean Corpuscular HGB Conc 34.3 g/dL (31.5-36.5); Mean Corpuscular Volume 91 fL (80-100); Mean Platelet Volume 8.9 fL (9.1-12.4); NEUTROPHILS ABSOLUTE AUTO 4.24 K/mm3 (1.96-9.15); NEUTROPHILS PERCENT AUTO 63 % (41-73); Platelet Count 255 K/mm3 (150-400); RDW Coefficient Variation 13.5 % (11.7-14.2); Red Blood Cell Count 3.03 M/mm3 (4.30-5.90); White Blood Cell Count 6.73 K/mm3 (4.00-11.30)
[2022-11-16 05:45] LABS: Bun/Creatinine Ratio 19.2 (12.0-20.0); Calcium, Blood 8.5 mg/dL (8.5-10.1); Creatinine, Blood 0.94 mg/dL (0.60-1.20); Potassium, Blood 3.7 mmol/L (3.5-5.5)
--- NOTE | 2022-11-16 05:49 | NUR ---
SHIFT SUMMERY PT HAD UNEVENTFUL SHIFT. NO ACUTE CHANGES. NO COMPLAINTS OF CHEST PAIN/PRESSURE, BILATERAL GROIN SITES WNL. VSS. AFEBRILE.
--- NOTE | 2022-11-16 07:00 | NUR ---
PT A&O X4. JAMUL AT BASELINE. PT FORGETFUL, BUT RE-ORIENTS EASILY. PT DENIES CP OR SOB. ECG SHOWS SR WITH T-WAVE INVERSION HR 60'S. AM TROPONIN 5,783. AM 12-LEAD DONE @ 0500. NO NOTED ACUTE CHANGES. SBP 100-110'S. UNABLE TO FIND DP PULSES WITH DOPPLER. PT PULSES PER DOPPLER. NO NOTED EDEMA. RIGHT AND LEFT GROIN SITES STABLE. NO NOTED BLEEDING, HEMATOMA, OR TENDERNESS. LUNGS CLEAR. NO NOTED COUGH. SATS>90% ON RA. PT DENIES GI DISTESS. PT VOIDS VIA URINAL PRN. PT DENIES NEED TO VOID AT THIS TIME. PT DECLINES AM CARE. PT BOOSTED IN BED AND PROVIDED WITH A CUP OF COFFEE. CALL LIGHT WITHIN REACH.
--- NOTE | 2022-11-16 09:49 | NUR ---
ECHO IN PROGRESS.
--- NOTE | 2022-11-16 11:01 | NUR ---
Spiritual Care Visit. Pt. is awake in bed and welcomes my visit. Pt. is pleasant and verbalizes that he is at peace with his condition. Pt. also verbalizes that he got good rest overnight, and feels much better today. Considered matters of kaci and belief. Facilitated more life review and re-established rapport. Pt. displays confidence in those who are caring for him. Prayed for Pt. and Pt. verbalized gratitude for the spiritual care visit. 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
--- NOTE | 2022-11-16 11:30 | NUR ---
PT SITTING UP IN BED EATING LUNCH WITHOUT NOTED DISTRESS. VS WDL. PT CONTINUES TO DENY CP OR SOB. BILATERAL GROIN SITES STABLE. PT DECLINES BATHING AND GETTING OOB FOR NOW. PT STATES "MAYBE LATER." CALL LIGHT IN REACH.
--- NOTE | 2022-11-16 17:25 | NUR ---
DR. US IN TO SEE PT. FULL UPDATE GIVEN. PT OFFERED PCI IN AM VS. MEDICAL MANAGEMENT. DR. US SPOKE WITH PT NEPHEW ROLDAN AND UPDATED HIM WELL. PT TO DISCUSS OPTIONS WITH HIS NEPHEW AND IF A DECISION IS MADE, DR. US TO BE UPDATED. PT STATES THAT HE IS NOT HUNGRY AND REFUSES DINNER TRAY. PT GIVEN MILKSHAKE.
--- NOTE | 2022-11-16 18:08 | NUR ---
PT HAS DECIDED TO PROCEED WITH PCI IN AM. INFORMED CONSENT OBTAINED DR. US DISCUSSED THE RISKS AND BENEFITS WITH PT AND HIS NEPHEW ROLDAN AT LENGTH. PT IS SLIGHTLY TEARFUL, BUT HE STATES THAT HE IS NOT WORRIED "MY LIFE IS IN THE HANDS OF MY LORD AND SAVIOR." PT NPO AFTER MID NIGHT.
--- NOTE | 2022-11-16 18:34 | NUR ---
"Spiritual Care | Code Pt. was coding in ICU and receiving chest compressions. Gave support assistance to ICU. Helped nurse manager domestic and Palliative Care contact NOK. After the Pt. coded for a second time, a phone call was made to the Pts. son ([email or web address]). Son was informed that the outcome for the Pt. didn't look good. Received confirmation of TOD moments later (approx. 6:30), and that the Doctor would contact the NOK."
[2022-11-17] VITALS (39 sets, daily range): BP systolic 79–129; BP diastolic 51–88
--- NOTE | 2022-11-17 03:14 | NUR ---
ASSUMED CARE AT 0125 PT LAYING IN BED SLEEPING WHEN REPORT RECIEVED. BILATERAL GROIN SITES SHOW NO SIGNS OF BLEEDING OR HEMATOMA. PT REQUESTS TO BE LEFT ALONE TO SLEEP NOW. WCTM.
[2022-11-17 03:15] LABS: BASOPHILS ABSOLUTE AUTO 0.02 K/mm3 (0.00-0.23); BASOPHILS PERCENT AUTO 0 % (0-2); EOSINOPHILS ABSOLUTE AUTO 0.21 K/mm3 (0.00-0.68); EOSINOPHILS PERCENT AUTO 3 % (0-6); Hematocrit 26.5 % (37.0-53.0); Hemoglobin 9.3 g/dL (13.5-17.5); IMMATURE GRAN ABSOLUTE AUTO 0.03 K/mm3 (0.00-0.10); IMMATURE GRAN PERCENT AUTO 1 % (0-1); LYMPHOCYTES ABSOLUTE AUTO 1.78 K/mm3 (0.84-5.20); LYMPHOCYTES PERCENT AUTO 28 % (21-46); MONOCYTES ABSOLUTE AUTO 0.57 K/mm3 (0.16-1.47); MONOCYTES PERCENT AUTO 9 % (4-13); Mean Corpuscular HGB 31.5 pg (26.0-34.0); Mean Corpuscular HGB Conc 35.1 g/dL (31.5-36.5); Mean Corpuscular Volume 90 fL (80-100); Mean Platelet Volume 8.9 fL (9.1-12.4); NEUTROPHILS ABSOLUTE AUTO 3.82 K/mm3 (1.96-9.15); NEUTROPHILS PERCENT AUTO 59 % (41-73); Platelet Count 282 K/mm3 (150-400); RDW Coefficient Variation 13.4 % (11.7-14.2); RDW Standard Deviation 44.2 fL (35.1-46.3); Red Blood Cell Count 2.95 M/mm3 (4.30-5.90); White Blood Cell Count 6.43 K/mm3 (4.00-11.30)
[2022-11-17 03:34] LABS: Bun/Creatinine Ratio 20.1 (12.0-20.0); Calcium, Blood 8.3 mg/dL (8.5-10.1); Creatinine, Blood 0.94 mg/dL (0.60-1.20)
--- NOTE | 2022-11-17 06:22 | NUR ---
END OF SHIFT SUMMARY NO ACUTE EVENTS SINCE TAKING OVER CARE AT 0125. PT SLEPT DURING THIS TIME. HE IS A/O X4; CAN FORGET LIMITATIONS. SPO2 >94% ON RA. HR 60'S. BP STABLE. ONE BM NOTED; NPO SINCE 0000. USED URINAL WITH ASSISTANCE. BILATERAL GROIN SITES SHOW NO SIGNS OF BLEEDING OR HEMATOMA; TENDER TO PALPATE. NS INFUSING AT 100ML/HR. WILL REPORT TO AM RN WHEN AVAILABLE.
--- NOTE | 2022-11-17 07:00 | NUR ---
ASSUMPTION OF CARE PT RESTING, WAKENS EASILY TO VERBAL STIMULI. HE HAS BEEN NPO SINCE MIDNIGHT. PT HAS TENDERNESS AT BILAT GROIN SITES BUT DENIES PAIN. TWO TEGADERM IN PLACE, SURROUNDING TISSUE SOFT. HE IS SINUS ON MONITOR WITH RATE 60S, SBP 90S WITH MAP >65. PT REQUESTS TO REST AT THIS TIME. BED IN LOW POSITION AND CALL LIGHT WITHIN REACH. SEE SHIFT ASSESSMENT.
--- NOTE | 2022-11-17 12:00 | NUR ---
UPDATE DR US AT BEDSIDE FOR EVAL. PLAN FOR PT TO GO TO [facility] PHYSICAL SCIENTIST SHORTLY.
--- NOTE | 2022-11-17 12:15 | NUR ---
PT TO ROUND UP RING HAND AT THIS TIME
--- NOTE | 2022-11-17 18:27 | NUR ---
ARRIVAL TO UNIT PT BROUGHT BACK TO UNIT AT 1827 FROM PEST CONTROL CHEMICAL TECHNICIAN. PT HAS BILATERAL GROIN SITE AND IN SUPINE POSITIONING. 2 STENTS PLACED; LM AND PROX LAD. R SIDE IMPELLA INSERTION SITE AND L SIDE PCI WITH CLOSURE DEVICE. FEM STOP IN PLACE ON R GROIN BUT NOT INFLATED. TISSUE SURROUNDING SITE IS SOFT, NO HEMATOMA. SITE BEGAN OOZING BLOOD, FEM STOP INFLATED TO 140 AT 1850. L SIDE SOFT, NO HEMATOMA. EKG DONE. PT DENIES CP OR PAIN IN GENERAL. PT IS A&OX3. LUNGS ARE CLEAR THROUGHOUT. PT ON RA WITH SPO2 >95%. SINUS RHTYHM ON MONITOR WITH RATE IN 70S. SBP 110S-120S. DISTAL PULSES AUDIBLE WITH DOPPLER. PLAN FOR ECHO IN AM. PT SUPINE AND CALL LIGHT WITHIN REACH.
[2022-11-17 19:05] LABS: BASOPHILS ABSOLUTE AUTO 0.02 K/mm3 (0.00-0.23); BASOPHILS PERCENT AUTO 0 % (0-2); EOSINOPHILS ABSOLUTE AUTO 0.19 K/mm3 (0.00-0.68); EOSINOPHILS PERCENT AUTO 2 % (0-6); Hematocrit 30.7 % (37.0-53.0); Hemoglobin 10.3 g/dL (13.5-17.5); IMMATURE GRAN ABSOLUTE AUTO 0.05 K/mm3 (0.00-0.10); IMMATURE GRAN PERCENT AUTO 1 % (0-1); LYMPHOCYTES ABSOLUTE AUTO 2.13 K/mm3 (0.84-5.20); LYMPHOCYTES PERCENT AUTO 21 % (21-46); MONOCYTES ABSOLUTE AUTO 0.71 K/mm3 (0.16-1.47); MONOCYTES PERCENT AUTO 7 % (4-13); Mean Corpuscular HGB 31.3 pg (26.0-34.0); Mean Corpuscular HGB Conc 33.6 g/dL (31.5-36.5); Mean Corpuscular Volume 93 fL (80-100); Mean Platelet Volume 8.6 fL (9.1-12.4); NEUTROPHILS ABSOLUTE AUTO 6.86 K/mm3 (1.96-9.15); NEUTROPHILS PERCENT AUTO 69 % (41-73); Platelet Count 304 K/mm3 (150-400); RDW Coefficient Variation 13.6 % (11.7-14.2); RDW Standard Deviation 46.7 fL (35.1-46.3); Red Blood Cell Count 3.29 M/mm3 (4.30-5.90); White Blood Cell Count 9.96 K/mm3 (4.00-11.30)
[2022-11-17 19:27] LABS: CPK Creatine Kinase 133 U/L (39-308)
--- NOTE | 2022-11-17 23:16 | NUR ---
ASSUMED CARE AT 1900 PT HAD JUST RETURNED FROM THE MID LEVEL PROVIDER RIGHT BEFORE SHIFT CHANGE. BILATERAL GROIN SITES EXAMINED AND OOZING. THE AM NURSE INFLATED FEM STOP ON THE RT GROIN AND A SAND BAG WAS PLACED ON LT GROIN SITE. FREQUENT MONITORING OF BOTH GROIN SITES AND OOZING STARTED TO SLOW DOWN AROUND 2300 WITH FEM STOP AND SANDBAG IN PLACE, SITES SOFT BUT PAINFUL TO PALPATE T/O THIS TIME. DR US AT BEDSIDE TWICE TO CHECK ON BLEEDING; HE PROVIDED ORDERS FOR PAIN MANAGEMENT. PRN NORCO GIVEN AND HELPFUL; PT IS NOW SLEEPING COMFORTABLY. BEFORE PAIN MEDICATION PT WAS A/O X4 AND YELLED OUT WHEN NEEDING ASSISTANCE WITH THE URINAL; COLD AFTER MID LEVEL PROVIDER BUT UNDERSTOOD HIS LIMITATIONS D/T GROIN SITES. SPO2 >94% ON RA. NSR WITH HR 80'S. BP STABLE WITH SBP 100'S; MAP >65; BILATERAL PEDAL AND TIBIAL PULSES FOUND WITH DOPPLER. TOLERATING PO FLUID INTAKE WELL. USES URINAL WITH ASSISTANCE. NS INFUSING AT 125ML/HR. SEE SHIFT ASSESSMENT FOR FULL ASSESSMENT.
[2022-11-18] VITALS (60 sets, daily range): BP systolic 73–139; BP diastolic 46–82
--- NOTE | 2022-11-18 01:29 | NUR ---
UPDATE SINCE ADMINISTRATION OF ONE NORCO, PT PAIN HAS IMPROVED BUT HIS BP HAS DECREASED, SBP 70-90'S, MAP HIGH 50'S- LOW 60'S. HR REMAINS THE SAME IN THE 80'S, SPO2 CONT TO BE >95% ON RA AND ALTHOUGH MORE DROWSY THAN BEFORE IS STILL ORIENTED AND ANSWERS QUESTIONS APPROPRIATLY. CALL MADE TO DR MADRID WHO ORDERED 250ML BOLUS. NO BLEEDING FROM THE GROIN SITES AT THIS TIME. SAND BAG REMOVED FROM LT SITE, FEM STOP HAS NO PRESSURE BUT IS STILL IN PLACE.
[2022-11-18 03:13] LABS: Mean Corpuscular Volume 93 fL (80-100)
--- NOTE | 2022-11-18 03:21 | NUR ---
UPDATE 30 MIN AFTER GIVING 250ML BOLUS THERE WAS NO CHANGES IN PT BP. ATTEMPTED TO CONTACT DR US AT 0217, 0234, 0237, & 0256 WITH THE PHONE NUMBER [phone] (THIS NUMBER WAS ALSO VARIFIED WITH ED AND THE [facility] ANSWERING SERVICE). AT [address] MADRID WHO PROVIDED ORDERS FOR DOBUTAMINE. NO CHANGES IN PT BILATERAL GROIN SITES SINCE LAST NOTE.
[2022-11-18 03:24] LABS: Hematocrit 23.5 % (37.0-53.0); Mean Corpuscular HGB 31.7 pg (26.0-34.0); Mean Platelet Volume 8.7 fL (9.1-12.4); Platelet Count 252 K/mm3 (150-400); RDW Coefficient Variation 13.7 % (11.7-14.2); RDW Standard Deviation 46.5 fL (35.1-46.3); Red Blood Cell Count 2.52 M/mm3 (4.30-5.90); White Blood Cell Count 7.95 K/mm3 (4.00-11.30)
[2022-11-18 03:33] LABS: Bun/Creatinine Ratio 17.6 (12.0-20.0); Calcium, Blood 7.7 mg/dL (8.5-10.1); Creatinine, Blood 1.02 mg/dL (0.60-1.20); Potassium, Blood 3.8 mmol/L (3.5-5.5)
--- NOTE | 2022-11-18 05:32 | NUR ---
UPDATE DR US CALLED THE FACILITY AT 0520 RETURNING THE CALLS LEFT EARLIER. UPDATE WAS GIVEN TO HIM REGARDING HYPOTESION, STARTING DOBUTAMINE AND THIS MORNINGS EKG. NEW ORDERS PROVIDED TO TYPE AND SCREEN PATIENT FOLLOWED BY GIVING ONE UNIT OF PRBC; OTHER LABS ORDERED INCLUDES IONIZED CALICUM AND CMP.
[2022-11-18 06:28] LABS: Albumin, Blood 2.2 g/dL (3.4-5.0); Albumin/Globulin Ratio 0.6 (0.8-1.8); Bilirubin, Total 0.8 mg/dL (0.1-1.0); Bun/Creatinine Ratio 18.4 (12.0-20.0); Calcium, Blood 7.8 mg/dL (8.5-10.1); Creatinine, Blood 0.98 mg/dL (0.60-1.20); Globulin, Blood 3.9 g/dL (2.2-4.0); Potassium, Blood 3.7 mmol/L (3.5-5.5); Total Protein, Blood 6.1 g/dL (6.4-8.2)
--- NOTE | 2022-11-18 07:00 | NUR ---
ASSUMPTION OF CARE BEDSIDE REPORT RECEIVED. HE IS RECEIVING DOBUTAMINE 1MCG/KG/MIN. PT WAKENS EASILY TO VERBAL STIMULI. HE DENIES PAIN AT THIS TIME. BILAT GROIN SITES VISUALIZED WITH PREVIOUS NURSE. DRESSINGS ARE RED BUT DO NOT APPEAR TO BE ACTIVELY BLEEDING. SURROUNDING TISSUE SOFT AND TENDER TO LIGHT PALPATION. SINUS RHTYHM ON MONITOR WITH RATE IN 80S. PLAN FOR PT TO RECEIVE 1 UNIT PRBCS. UNIT READY SLIP SENT TO LAB AT THIS TIME.
--- NOTE | 2022-11-18 07:07 | NUR ---
END OF SHIFT SUMMARY SINCE STARTING DOBUTAMINE PT BP HAS IMPROVED, SBP 100-110, MAP 65-75; DOBUTAMIN INFUSING AT 1MCG/KG/MIN; BLEEDING FROM BILATERAL GROINS STOPPED AROUND 2200, NO SIGNS OF HEMATOMA, SITES TENDER TO PALPATE; FEM STOP AND SAND BAG REMOVED; HR CONT IN 80'S. NO CHANGES IN MENTATION. SPO2 >95% ON RA. TOLERATED PO FLUID INTAKE WELL. USED URINAL WITH ASSISTANCE, 350ML OUT THIS SHIFT. REPORT GIVEN TO ALVIN MERLOS.
[2022-11-18 10:20] LABS: Hematocrit 28.7 % (37.0-53.0); Hemoglobin 9.7 g/dL (13.5-17.5)
--- NOTE | 2022-11-18 10:25 | NUR ---
UPDATE PT RECEIVED 1 UNIT PRBCS, REPEAT H+H PENDING AT THIS TIME. DOBUTAMINE OFF SINCE 929. PT A&OX3 AND REQUESTING UNINTERRUPTED REST. EXPLAINED IMPORTANCE OF PROVIDING CARE AND PT ALLOWED BILAT GROIN SITE DRESSINGS TO BE CHANGED. SMALL AMOUNT OF BLUE/YELLOW BRUISING, AREA TENDER BUT SOFT TO PALPATION. CLEAR TEGADERMS IN PLACE. NO BRUISING OR TENDERNESS ON FLANK/BACK. SINUS RHTYHM ON MONITOR WITH RATE IN 70S. SBP 130S, STRONG RADIAL PULSES AND FAINT PEDAL PULSES. PT REFUSED BREAKFAST. HE HAS USED THE URINAL TO VOID TWICE. BED IN LOW POSITION AND CALL LIGHT WITHIN REACH. CARDIOLOGY AND HOSPITALIST ROUNDED. PLAN TO TRANSITION TO MED [facility].
[2022-11-18 11:55] LABS: Creatine Kinase MB 20.1 ng/mL (0.0-3.6); Creatine Kinase MB Index 5.8 (0.0-4.0)
--- NOTE | 2022-11-18 13:28 | NUR ---
UPDATE PT RESTING, WAKENS EASILY TO VERBAL STIMULI. PT DENIES PAIN/DISCOMFORT. BILAT GROIN SITES UNCHANGED, DRESSINGS C/D/I. HR REMAINS IN 80S. BP STABLE WITH SBP 110S-120S. BED IN LOW POSITION, CALL LIGHT WITHIN REACH.
--- NOTE | 2022-11-18 17:34 | NUR ---
SHIFT SUMMARY PT IS A&OX3. HE DECLINED GETTING UP TO A CHAIR AND A SHOWER TODAY BUT ASSISTS WITH CARE AND REPOSITIONS SELF INDEPENDENTLY. PT REQUESTS UNINTRRUPTED REST. LUNGS ARE CLEAR THROUGHOUT. HE IS ON RA WITH SPO2 >95%. SINUS RHYTHM ON MONITOR WITH RATE IN 80S. BP STABLE THROUGHOUT SHIFT WITH MAP >65 AND SBP 90S-120S. PT HAS DENIED CP OR CHEST DISCOMFORT THROUGHOUT THE SHIFT. BILATERAL GROIN SITES HAVE TEGADERM IN PLACE, C/D/I. SLIGHT BLUE/YELLOW BRUISING THAT HAS BEEN UNCHANGED, SURROUNDING AREA SOFT. AREA TENDER BUT PT REPORTS IT "FEELING A LITTLE BETTER". HE REFUSED MEALS TODAY BUT HAS BEEN DRINKING FLUIDS. BOWEL TONES ACTIVE, ABDOMEN SOFT. PT HAD 1 INCONTINENT MEDIUM LIQUID STOOL THIS EVENING. PT USES URINAL TO VOID MULTIPLE TIMES THROUGHOUT THE DAY. SCDS IN PLACE. BED IN LOW POSITION AND CALL LIGHT WITHIN REACH.
[2022-11-19] VITALS (13 sets, daily range): BP systolic 84–122; BP diastolic 50–75
[2022-11-19 05:34] LABS: BASOPHILS ABSOLUTE AUTO 0.02 K/mm3 (0.00-0.23); BASOPHILS PERCENT AUTO 0 % (0-2); EOSINOPHILS PERCENT AUTO 3 % (0-6); Hematocrit 26.3 % (37.0-53.0); Hemoglobin 9.1 g/dL (13.5-17.5); IMMATURE GRAN ABSOLUTE AUTO 0.02 K/mm3 (0.00-0.10); IMMATURE GRAN PERCENT AUTO 0 % (0-1); LYMPHOCYTES PERCENT AUTO 23 % (21-46); MONOCYTES ABSOLUTE AUTO 0.66 K/mm3 (0.16-1.47); MONOCYTES PERCENT AUTO 9 % (4-13); Mean Corpuscular HGB 31.3 pg (26.0-34.0); Mean Corpuscular HGB Conc 34.6 g/dL (31.5-36.5); Mean Corpuscular Volume 90 fL (80-100); Mean Platelet Volume 8.8 fL (9.1-12.4); NEUTROPHILS ABSOLUTE AUTO 5.05 K/mm3 (1.96-9.15); NEUTROPHILS PERCENT AUTO 65 % (41-73); Platelet Count 264 K/mm3 (150-400); RDW Coefficient Variation 14.5 % (11.7-14.2); RDW Standard Deviation 46.8 fL (35.1-46.3); Red Blood Cell Count 2.91 M/mm3 (4.30-5.90); White Blood Cell Count 7.75 K/mm3 (4.00-11.30)
--- NOTE | 2022-11-19 05:58 | NUR ---
END OF SHIFT SUMMARY NO ACUTE EVENTS OVER NIGHT. YADIEL SLEPT FOR MOST OF THE NIGHT; WHEN HE FIRST WOKE UP HE WAS SLIGHTLY DISORIENTED BUT WAS QUICKLY REORIENTED AND MAKING HIS NEEDS KNOWN AND AT BASELINE. VSS. BILATERAL GROIN SITES TENDER BUT "GETTING BETTER"; SLIGHT BRUSING NOTED TO LT SIDE NEAR GROIN SITE. NO C/O CHEST PAIN OR DYSPNEA. SALINE LOCKED. POWER GLIDE TO RUE PATENT WITH DRESSING C/D/I. WILL REPORT TO AM RN WHEN AVAILABLE.
[2022-11-19 06:08] LABS: Albumin, Blood 2.3 g/dL (3.4-5.0); Albumin/Globulin Ratio 0.5 (0.8-1.8); Bilirubin, Total 0.9 mg/dL (0.1-1.0); Bun/Creatinine Ratio 18.7 (12.0-20.0); Calcium, Blood 8.3 mg/dL (8.5-10.1); Creatinine, Blood 0.96 mg/dL (0.60-1.20); Globulin, Blood 4.2 g/dL (2.2-4.0); Magnesium, Blood 2.4 mg/dL (1.6-2.4); Phosphorus, Blood 2.6 mg/dL (2.5-4.9); Potassium, Blood 3.6 mmol/L (3.5-5.5); Total Protein, Blood 6.5 g/dL (6.4-8.2)
[2022-11-19 06:35] LABS: Creatine Kinase MB 7.1 ng/mL (0.0-3.6); Creatine Kinase MB Index 3.3 (0.0-4.0)
--- NOTE | 2022-11-19 07:00 | NUR ---
ASSUMPTION OF CARE PT RESTING, WAKENS EASILY TO VERBAL STIMULI. HE IS ALERT AND ORIENTED, PARTICIPATES IN CONVERSATION AND CARE. PT REPORTS FEELING WELL AND CAPABLE OF GOING HOME TODAY. BILAT GROIN SITE DRESSINGS C/D/I. NO ACTIVE BLEEDING, SITES UNCHANGED FROM YESTERDAY, SURROUNDING TISSUE SOFT TO PALPATION. SINUS RHYTHM ON MONITOR WITH RATE 70S. BP STABLE WITH MAP >65. SEE SHIFT ASSESSMENT.
--- NOTE | 2022-11-19 09:00 | NUR ---
UPDATE PLAN FOR PT TO RETURN TO FIREWORKS ASSEMBLER THIS AFTERNOON THEN RETURN PCU STATUS. PT A&OX4, PARTICIPATES IN CONVERSATION AND CARE. PT AMBULATED WITH GAIT BELT AND WALKER, PT TOLERATED VERY WELL AND HAD STEADY GAIT. PT UP TO RECLINER FOR APPROX 2HRS THEN RETURNED TO BED. PT IS NPO DUE TO PROCEDURE. BOWEL TONES HYPOACTIVE. PT USED URINAL ONCE TO VOID. VSS THIS SHIFT. NEPHNATALIE DAVILA UPDATED ON PLAN OF CARE PER PT REQUEST. PT LEFT FOR FIREWORKS ASSEMBLER AT 1315.
--- NOTE | 2022-11-19 14:07 | NUR ---
REPORT GIVEN TO NANCY ESQUIVEL. PLAN FOR PT TO RETURN TO PCU 17 AFTER FLUE CLEANER PROCEDURE.
[2022-11-19 17:58] LABS: Creatine Kinase MB 5.3 ng/mL (0.0-3.6); Creatine Kinase MB Index 3.3 (0.0-4.0)
--- NOTE | 2022-11-19 18:53 | NUR ---
SHIFT SUMMARY: PATIENT TO PCU 17 POST ROOFING TILE SORTER. ALERT AND ORIENTED. AGGITATED AND HUNGRY POST ROOFING TILE SORTER PROCEDURE. RIGHT RADIAL SITE WNL. VERY SCANT BLOOD UNDER TR BAND THAT HAS BEEN UNCHANGED. NO SIGNS OF BLEEDING. SOFT AND NONTENDER. ARM BOARD IN PLACE. POST RADIAL SITE CARE PRECAUTIONS DISCUSSED WITH PATIENT. POST VITAL SIGNS IN PROGRESS AND STABLE. TELE SHOWING SR WITH HR 80'S. STRONG RADIAL PULSES. FAINT PEDAL PULSES. PREVIOUS BILATERL GROIN SITES. TENDERNESS TO LEFT GROIN SITE. MINIMAL BRUISING TO BILATERAL SITES. ON ROOM AIR, LUNGS SOUNDING CLEAR. EATING WNL, USING LEFT HAND. UP TO BSC AND LARGE SOFT BOWEL MOVEMENT. EKG COMPLETED POST ROOFING TILE SORTER. NS INFUSING AT 125 ML/HR PER EMAR, TO BE STOPPED AT 2100. PLAN FOR EKG IN AM. CALL LIGHT IN REACH. PATIENT SLEEPING AT THIS TIME.
[2022-11-20 03:56] VITALS: BP 93/58
[2022-11-20 05:45] LABS: BASOPHILS ABSOLUTE AUTO 0.02 K/mm3 (0.00-0.23); BASOPHILS PERCENT AUTO 0 % (0-2); EOSINOPHILS ABSOLUTE AUTO 0.18 K/mm3 (0.00-0.68); EOSINOPHILS PERCENT AUTO 3 % (0-6); Hematocrit 22.9 % (37.0-53.0); Hemoglobin 7.8 g/dL (13.5-17.5); IMMATURE GRAN ABSOLUTE AUTO 0.02 K/mm3 (0.00-0.10); IMMATURE GRAN PERCENT AUTO 0 % (0-1); LYMPHOCYTES ABSOLUTE AUTO 1.26 K/mm3 (0.84-5.20); LYMPHOCYTES PERCENT AUTO 18 % (21-46); MONOCYTES ABSOLUTE AUTO 0.53 K/mm3 (0.16-1.47); MONOCYTES PERCENT AUTO 8 % (4-13); Mean Corpuscular HGB 31.2 pg (26.0-34.0); Mean Corpuscular HGB Conc 34.1 g/dL (31.5-36.5); Mean Corpuscular Volume 92 fL (80-100); Mean Platelet Volume 8.7 fL (9.1-12.4); NEUTROPHILS ABSOLUTE AUTO 4.96 K/mm3 (1.96-9.15); NEUTROPHILS PERCENT AUTO 71 % (41-73); Platelet Count 272 K/mm3 (150-400); RDW Coefficient Variation 14.6 % (11.7-14.2); RDW Standard Deviation 48.2 fL (35.1-46.3); White Blood Cell Count 6.97 K/mm3 (4.00-11.30)
[2022-11-20 06:14] LABS: Albumin, Blood 2.2 g/dL (3.4-5.0); Albumin/Globulin Ratio 0.6 (0.8-1.8); Bilirubin, Total 0.6 mg/dL (0.1-1.0); Bun/Creatinine Ratio 22.2 (12.0-20.0); Calcium, Blood 7.9 mg/dL (8.5-10.1); Creatine Kinase MB 12.9 ng/mL (0.0-3.6); Creatine Kinase MB Index 5.8 (0.0-4.0); Creatinine, Blood 0.9 mg/dL (0.60-1.20); Potassium, Blood 3.9 mmol/L (3.5-5.5); Total Protein, Blood 6.2 g/dL (6.4-8.2)
--- NOTE | 2022-11-20 06:17 | NUR ---
SHIFT SUMMARY: ASSUMED PT ARE AT 0230. PT IS ALERT, ORIENTED TO SELF ONLY. REORIENTED WITH DIFFICULTY. RIGHT RADIAL SITE RECOVERED, NO SWELLING, BRUISING, OR LEAKAGE NOTED. OPSITE DRESSING PLACED OVER INCISION AFTER TR BAND REMOVED. PT NEEDS FREQUENT REMINDERS NOT TO USE RIGHT HAND. PT HAS HAD NO COMPLAINTS OF SOB OR CHEST PAIN FOR ME. BED ALARM ON FOR PT SAFETY. CALL LIGHT IN REACH.
[2022-11-20 08:14] VITALS: BP 92/59
[2022-11-20 08:52] VITALS: BP 86/55
[2022-11-20 13:54] VITALS: BP 97/70
[2022-11-20 16:13] VITALS: BP 105/72
--- NOTE | 2022-11-20 18:26 | NUR ---
SHIFT SUMMARY PT ALERT AND ORIENTED TO SELF AND FAMILY ONLY AT START OF SHIFT. PT HAD AGGRESSIVE TONE AND STATED "I DONT TRUST YOU" AND "GET THE F OUT OF MY HOUSE" WHEN THIS RN ATTEMPTED TO DO VITALS AND MEDICATIONS. DR COTTON WAS PRESENT FOR THIS. HEAD CT WAS ORDER DUE TO MENTATION CHANGES. PT APPEARED TO BE SUNDOWNING BUT HAS NO OFFICIAL DIAGNOSIS OF DEMENTIA. AFTER AN HOUR OF THE PT CONTINUING TO REST, THIS RN ATTEMPTED ASSESSMENT AND MEDICATIONS AGAIN. PT WAS PLEASANT AND COOPERATIVE AT THIS TIME. A/O TO SELF AND FAMILY AND SITUATION. PT UNABLE TO TELL ME DATE OR LOCATION BUT DID KNOW THAT HE WAS NOT AT HIS HOME. DR BENTON SAW PATIENT AND CLEARED HIM FOR DISCHARGE FROM CARDIOLOGY. DR COTTON NOTIFIED. DISCHARGE PLANNING NEEDED FOR SAFE DISCHARGE, PATIENT LIVES IN A TRAILER ALONE AND UNABLE TO MANAGE MEDICATIONS APPROPRIATELY. PT HAS NEPHEW, GIOVANNI, THAT IS INVOLVED BUT WORKS 6 DAYS A WEEK AND IS UNABLE TO HELP MANAGE MEDICATIONS FOR THE PATIENT. CASE MANAGAMENT AWARE OF CASE AND WORKING ON DISCHARGE PLAN. PT WAS TRANSFERRED TO MEDICAL TELE STATUS. PT HR IN THE 80-90'S, SINUS W/BBB. PT SPO2 >92% ON RA. PT DENIES ANY CP, CHEST PRESSURE, PALPITATIONS, OR SOB. RESPIRATIONS ARE EVEN AND UNLABORED. PT HAS 3 ANGIO ACCESS SITES. BLE GROIN AND RIGHT RADIAL. ALL SITES HEALING WNL. DRESSINGS ARE C/D/I. NO EDEMA, OOZING OR HEMATOMA NOTED. PT ABLE TO USE URINAL WITH ASSISTANCE. PT ABLE TO ASK FOR HELP APPROPRIATELY, BUT OFTEN FORGOT ABOUT THE CALL LIGHT EVEN WITH FREQUENT REORIENTATION. DUE TO THIS PT HAD ONE INCONTINENT VOID. NO BM NOTED TODAY. PT DECLINED BED BATH. OVERALL, NO ACUTE CHANGES IN PT STATUS. WILL CONTINUE TO CARE FOR PT AND REPORT TO ONCOMING RN.
[2022-11-20 19:31] VITALS: BP 105/70
[2022-11-20 22:28] LABS: Hematocrit 22.1 % (37.0-53.0); Hemoglobin 7.5 g/dL (13.5-17.5)
[2022-11-21 04:45] VITALS: BP 97/63
[2022-11-21 05:06] LABS: BASOPHILS ABSOLUTE AUTO 0.02 K/mm3 (0.00-0.23); BASOPHILS PERCENT AUTO 0 % (0-2); EOSINOPHILS ABSOLUTE AUTO 0.17 K/mm3 (0.00-0.68); EOSINOPHILS PERCENT AUTO 3 % (0-6); Hematocrit 22.5 % (37.0-53.0); Hemoglobin 7.6 g/dL (13.5-17.5); IMMATURE GRAN ABSOLUTE AUTO 0.03 K/mm3 (0.00-0.10); IMMATURE GRAN PERCENT AUTO 1 % (0-1); LYMPHOCYTES ABSOLUTE AUTO 0.98 K/mm3 (0.84-5.20); LYMPHOCYTES PERCENT AUTO 15 % (21-46); MONOCYTES ABSOLUTE AUTO 0.51 K/mm3 (0.16-1.47); MONOCYTES PERCENT AUTO 8 % (4-13); Mean Corpuscular HGB 31.3 pg (26.0-34.0); Mean Corpuscular HGB Conc 33.8 g/dL (31.5-36.5); Mean Corpuscular Volume 93 fL (80-100); Mean Platelet Volume 8.8 fL (9.1-12.4); NEUTROPHILS ABSOLUTE AUTO 4.79 K/mm3 (1.96-9.15); NEUTROPHILS PERCENT AUTO 74 % (41-73); Platelet Count 282 K/mm3 (150-400); RDW Coefficient Variation 14.6 % (11.7-14.2); RDW Standard Deviation 48.7 fL (35.1-46.3); Red Blood Cell Count 2.43 M/mm3 (4.30-5.90)
--- NOTE | 2022-11-21 05:26 | NUR ---
SHIFT SUMMARY: PT HAS BEEN A&OX4 THROUGHOUT WHOLE SHIFT. PLEASANT AND COOPERATIVE WITH REQUESTS. ABLE TO USE CALL LIGHT WHEN NEEDING TO USE URINAL AND MAKE REQUESTS OF STAFF. DENIES ANY COMPLAINTS OF SOB OR CHEST PAIN. O2 SATS > 92% ON RA WITH HR IN 80'S SR. RIGHT RADIAL SITE C/D/I WITH TRANSPARENT DRESSING COVERING, NO LEAKING, SWELLING, OR BRUISING NOTED. PT REPORTS SORENESS AT SITE. RIGHT AND LEFT GROIN SITES ALSO COVERED WITH TRANSPARENT DRESSING. OLD BRUISING NOTED JUST AROUND INSERTION SITE ON BOTH SIDES. NO FIRMNESS OR LEAKAGE NOTED. PT REPORTS SORENESS IN THESE AREAS WELL. NO MEDICATION NEEDED FOR PAIN CONTROL. PT SLEEPING MAJORITY OF SHIFT. WAKES IN A.M., USES CALL LIGHT TO REQUEST URINAL. COOPERATIVE WITH VITAL SIGNS AND LAB DRAWS.
[2022-11-21 05:33] LABS: Albumin, Blood 2.7 g/dL (3.4-5.0); Albumin/Globulin Ratio 0.7 (0.8-1.8); Bun/Creatinine Ratio 20.9 (12.0-20.0); Calcium, Blood 8.6 mg/dL (8.5-10.1); Creatinine, Blood 0.86 mg/dL (0.60-1.20); Globulin, Blood 3.7 g/dL (2.2-4.0); Potassium, Blood 3.6 mmol/L (3.5-5.5); Total Protein, Blood 6.4 g/dL (6.4-8.2)
[2022-11-21 08:02] VITALS: BP 90/54
--- NOTE | 2022-11-21 08:15 | NUR ---
CARE ASSUMPTION This RN assumed care at 0700. vital signs stable. patient is alert and oriented x3. patient knew the year and president, but stated the wrong month. patient knew he was at the [facility] in [facility], and able to inform this RN that he had stents placed. Patient reports no pain. Patient reports no chest pain/pressure. patient reports no shortness of breath. Patient right radial site is clean dry and intact. Patient bilateral groin sites are dry and intact with bruising at site. See shift assessmnet for further detials. Patient is medical status and will be moved to room 345. call light within reach and bed in lowest position with alarm on. Plan of care is up to date.
--- NOTE | 2022-11-21 10:10 | NUR ---
TRANSFER pile fabric knitter gave report to medical floor RN. patient left for new room, 345, with all belongings and in no distress. No acute changes since last note.
[2022-11-21 15:11] VITALS: BP 118/77
[2022-11-21] MEDS ORDERED: Aspir 8181 MG PO (16:22)
[2022-11-21] MEDS ORDERED: ATOR80 PO (16:23)
[2022-11-21] MEDS ORDERED: JARDIANCE25 MG PO (16:23)
[2022-11-21] MEDS ORDERED: FERSU300 PO (16:23)
[2022-11-21] MEDS ORDERED: METO25ER PO (16:24)
[2022-11-21] MEDS ORDERED: TICA90TA PO (16:24)
--- NOTE | 2022-11-21 17:56 | NUR ---
DISCHARGE PT DISCHARGED INTO THE CARE OF HIS NEPHEW WHO HE WILL BE LIVING WITH. PT MEDS SENT TO [facility]. NEPHEW, GIOVANNI, AND THE PT EDUCATED ON NEW MEDS AND THE IMPORTANCE OF TAKING THIS MEDS AND NOT MISSING DOSES. THIS RN CONFIRMED THAT THE [facility]ILINTA WILL BE READY AT [facility] FOR THE PT TO TAKE WHEN PICKUP UP. NO ACUTE CHANGES IN ASSESSMENT AT THIS TIME. VS REVIEWED. PT WHEELED OUT VIA WHEELCHAIR AND DRIVEN HOME BY NEPHEW.
== END 2022-11-21 18:00 | disposition home health service (06) | DRG 216 ==
LOC: ER 14:55 → MEDS 15:00 → ICUE 15:00 → PCU 15:00 → ICUW 15:00 → ICUE 16:35 → PCU 11-07 16:00 → ICUW 11-08 22:39 → ICUE 11-09 07:03 → MEDS 11-12 13:17 → ICUE 11-15 07:52 → PCU 11-15 08:15 → ICUE 11-15 09:10 → PCU 11-19 15:58 → MEDS 11-21 09:37
PROVIDERS: Emergency Medicine; Family Medicine; Internal Medicine; Internal Medicine Cardiovascular Disease; ADMIT Internal Medicine Interventional Cardiology
PROC: 027035Z Dilation of Coronary Artery, One Artery with Two Drug-eluting Intraluminal Devices, Percutaneous Approach (ICD-10-PCS; principal; 2022-11-06)
PROC: 4A023N7 Measurement of Cardiac Sampling and Pressure, Left Heart, Percutaneous Approach (ICD-10-PCS; 2022-11-06)
PROC: B2111ZZ Fluoroscopy of Multiple Coronary Arteries using Low Osmolar Contrast (ICD-10-PCS; 2022-11-06)
PROC: 4A023N7 Measurement of Cardiac Sampling and Pressure, Left Heart, Percutaneous Approach (ICD-10-PCS; 2022-11-07)
PROC: B2101ZZ Fluoroscopy of Single Coronary Artery using Low Osmolar Contrast (ICD-10-PCS; 2022-11-07)
PROC: 3E03329 Introduction of Other Anti-infective into Peripheral Vein, Percutaneous Approach (ICD-10-PCS; 2022-11-09)
PROC: 02703ZZ Dilation of Coronary Artery, One Artery, Percutaneous Approach (ICD-10-PCS; 2022-11-15)
PROC: 02HA3RJ Insertion of Short-term External Heart Assist System into Heart, Intraoperative, Percutaneous Approach (ICD-10-PCS; 2022-11-17)
PROC: 5A0221D Assistance with Cardiac Output using Impeller Pump, Continuous (ICD-10-PCS; 2022-11-17)
PROC: 02F03ZZ Fragmentation in Coronary Artery, One Artery, Percutaneous Approach (ICD-10-PCS; 2022-11-17)
PROC: 0271346 Dilation of Coronary Artery, Two Arteries, Bifurcation, with Drug-eluting Intraluminal Device, Percutaneous Approach (ICD-10-PCS; 2022-11-17)
PROC: 30233N1 Transfusion of Nonautologous Red Blood Cells into Peripheral Vein, Percutaneous Approach (ICD-10-PCS; 2022-11-18)
PROC: 027034Z Dilation of Coronary Artery, One Artery with Drug-eluting Intraluminal Device, Percutaneous Approach (ICD-10-PCS; 2022-11-19)
PROC: 4A023N7 Measurement of Cardiac Sampling and Pressure, Left Heart, Percutaneous Approach (ICD-10-PCS; 2022-11-19)
PROC: B2101ZZ Fluoroscopy of Single Coronary Artery using Low Osmolar Contrast (ICD-10-PCS; 2022-11-19)
DX: I21.19 ST elevation (STEMI) myocardial infarction involving other coronary artery of inferior wall (principal); A41.9 Sepsis, unspecified organism; G92.8 Other toxic encephalopathy; R65.21 Severe sepsis with septic shock; R57.0 Cardiogenic shock; R57.1 Hypovolemic shock; I50.20 Unspecified systolic (congestive) heart failure; F05 Delirium due to known physiological condition; Z66 Do not resuscitate; I25.5 Ischemic cardiomyopathy; D50.9 Iron deficiency anemia, unspecified; N40.0 Benign prostatic hyperplasia without lower urinary tract symptoms; R33.9 Retention of urine, unspecified; I25.10 Atherosclerotic heart disease of native coronary artery without angina pectoris; E11.9 Type 2 diabetes mellitus without complications; E87.8 Other disorders of electrolyte and fluid balance, not elsewhere classified; E83.51 Hypocalcemia; Z85.038 Personal history of other malignant neoplasm of large intestine; Z85.51 Personal history of malignant neoplasm of bladder; Z79.899 Other long term (current) drug therapy; Z87.440 Personal history of urinary (tract) infections; Z90.89 Acquired absence of other organs
CPT/HCPCS: 33990; 36415; 36430; 51702; 70450; 71045; 71260; 74177; 76937; 80047; 80048; 80053; 80061; 80069; 80076; 82306; 82330; 82550; 82553; 82607; 82652; 82746; 82947; 83036; 83735; 83970; 84100; 84145; 84484; 85014; 85018; 85025; 85027; 85347; 85610; 85730; 86850; 86900; 86901; 86923; 87040; 92920; 92921; 92978; 92979; 93005; 93010; 93306; 93308; 93321; 93454; 93458; 93571; 94762; 96374-59; 96375-59; 97116; 97161; 97166; 97530; 97535; 99152; 99153; 99285-25; A9270; C1725; C1751; C1753; C1757; C1760; C1761; C1769; C1874; C1876; C1887; C1894; C9600; C9601; C9606; J0153; J0282; J0461; J0690; J0696; J1250; J1265; J1644; J1650; J1815; J1940; J2250; J2370; J2916; J3010; J3246; J7030; J7040; J7050; J7060; P9016; P9047; Q9967

== ENCOUNTER → 2023-01-08 | Outpatient (CLI) | payer MEDICARE ==
[~2023-01-08] MED LIST changes: +ATOR80 PO; +Aspir 8181 MG PO; +FERSU300 PO; +JARDIANCE25 MG PO; +METO25ER PO; +TICA90TA PO
[2023-01-11 10:22] LABS: Stool Occult Bld Immuno 1 Negative (NEGATIVE)
== END | disposition home or self-care (01) ==
LOC: LAB SHORT 12:00 → LAB 12:00
PROVIDERS: Physician Assistant
DX: K92.1 Melena (principal)
CPT/HCPCS: G0328

== ENCOUNTER 2023-08-14 06:32 | Emergency (ER) | payer MEDICARE ==
[~2023-08-14] VITALS: Ht 175.3 cm; Wt 70.3 kg
[2023-08-14 07:03] LABS: BASOPHILS ABSOLUTE AUTO 0.04 K/mm3 (0.00-0.23); BASOPHILS PERCENT AUTO 1 % (0-2); EOSINOPHILS ABSOLUTE AUTO 0.34 K/mm3 (0.00-0.68); EOSINOPHILS PERCENT AUTO 4 % (0-6); Hematocrit 36.2 % (37.0-53.0); IMMATURE GRAN ABSOLUTE AUTO 0.02 K/mm3 (0.00-0.10); IMMATURE GRAN PERCENT AUTO 0 % (0-1); LYMPHOCYTES ABSOLUTE AUTO 2.35 K/mm3 (0.84-5.20); LYMPHOCYTES PERCENT AUTO 30 % (21-46); MONOCYTES ABSOLUTE AUTO 0.61 K/mm3 (0.16-1.47); MONOCYTES PERCENT AUTO 8 % (4-13); Mean Corpuscular HGB 32.4 pg (26.0-34.0); Mean Corpuscular HGB Conc 33.1 g/dL (31.5-36.5); Mean Corpuscular Volume 98 fL (80-100); Mean Platelet Volume 9.5 fL (9.1-12.4); NEUTROPHILS ABSOLUTE AUTO 4.56 K/mm3 (1.96-9.15); NEUTROPHILS PERCENT AUTO 58 % (41-73); Platelet Count 176 K/mm3 (150-400); RDW Standard Deviation 46.3 fL (35.1-46.3); White Blood Cell Count 7.92 K/mm3 (4.00-11.30)
[2023-08-14 07:18] LABS: Albumin, Blood 3.4 g/dL (3.4-5.0); Albumin/Globulin Ratio 0.9 (0.8-1.8); Bilirubin, Total 0.6 mg/dL (0.1-1.0); Bun/Creatinine Ratio 13.5 (12.0-20.0); Calcium, Blood 8.5 mg/dL (8.5-10.1); Creatinine, Blood 1.04 mg/dL (0.60-1.20); Globulin, Blood 3.8 g/dL (2.2-4.0); Potassium, Blood 3.9 mmol/L (3.5-5.5); Total Protein, Blood 7.2 g/dL (6.4-8.2)
[2023-08-14 08:45] VITALS: BP 115/71
== END 2023-08-14 08:46 | disposition home or self-care (01) ==
LOC: ER 06:32
PROVIDERS: Emergency Medicine
DX: K21.00 Gastro-esophageal reflux disease with esophagitis, without bleeding (principal); E11.9 Type 2 diabetes mellitus without complications; I25.2 Old myocardial infarction; Z87.891 Personal history of nicotine dependence; Z85.038 Personal history of other malignant neoplasm of large intestine; Z79.82 Long term (current) use of aspirin; Z79.899 Other long term (current) drug therapy
CPT/HCPCS: 71045; 80053; 84484; 85025; 93005; 93010; 99284-25; A9270

== ENCOUNTER 2023-09-27 12:36 | Day surgery (SDC) | payer OTHER ==
[~2023-09-27] VITALS: Ht 165.1 cm; Wt 69.7 kg
[~2023-09-27 12:36] MED LIST changes: +Atropine Sulfate 0.1 MG/ML 10ML SYR ONE; +Glycopyrrolate 0.2 MG/ML 1MLVIAL ONE; +Lactated Ringer's 0 ML IV ONE; +Lactated Ringer's 1,000 ML IV ONE; +Lidocaine 2% 5 ML SDV ONE; +Methylene Blue 1% 100 MG/10 ML VIAL ONE; +Ondansetron HCl 2 MG / ML 2ML Vial ONE; +ePHEDrine Sulfate 50 MG/ML 1ML Injection ONE
[2023-09-27] MEDS ORDERED: Lactated Ringer's 1,000 ML IV ONE (14:00)
--- NOTE | 2023-09-27 14:00 | NUR ---
09/27/23 1400 Peyton Garcia PT TO PRE OP AMBULATORY WITH STEADY GAIT. CAREGIVER AT BEDSIDE. History, Chart, Medications and Allergies reviewed before start of procedure. GLASSES REMAIN IN PLACE.
[2023-09-27] MEDS ORDERED: STEGLATRO15 MG PO (14:05)
[2023-09-27] MEDS ORDERED: METF500 PO (14:05)
[2023-09-27] MEDS ORDERED: propofoL 50 ML IV ONE (14:59)
[2023-09-27] MEDS ORDERED: Glycopyrrolate 0.2 MG/ML 1MLVIAL ONE (15:22)
--- NOTE | 2023-09-27 15:23 | NUR ---
09/27/23 1523 RYAN HERNANDEZ PT NO LONGER HAS CECUM; REACHED ILEOCOLONIC ANASTAMOSIS 1527
[2023-09-27] MEDS ORDERED: ePHEDrine Sulfate 50 MG/ML 1ML Injection ONE (15:25)
[2023-09-27 16:11] VITALS: BP 97/66
== END 2023-09-27 16:00 | disposition home or self-care (01) ==
LOC: ORSCSDS 12:36
PROVIDERS: Surgery
PROC: 0DJD8ZZ Inspection of Lower Intestinal Tract, Via Natural or Artificial Opening Endoscopic (ICD-10-PCS; principal; 2023-09-27 14:00)
DX: Z85.038 Personal history of other malignant neoplasm of large intestine (principal); K64.8 Other hemorrhoids; Z79.02 Long term (current) use of antithrombotics/antiplatelets; K57.30 Diverticulosis of large intestine without perforation or abscess without bleeding; I10 Essential (primary) hypertension; I25.2 Old myocardial infarction; E11.9 Type 2 diabetes mellitus without complications; K21.9 Gastro-esophageal reflux disease without esophagitis; Z87.891 Personal history of nicotine dependence; Z86.73 Personal history of transient ischemic attack (TIA), and cerebral infarction without residual deficits; G45.9 Transient cerebral ischemic attack, unspecified; Z79.84 Long term (current) use of oral hypoglycemic drugs; Z79.899 Other long term (current) drug therapy
CPT/HCPCS: 82947; J0461; J2405; J2704; J7120; Q9968